=== PATIENT | female | born 1940 | race Caucasian/White ===

== ENCOUNTER 2020-08-18 00:25 | Emergency (ER) | payer MEDICARE, SELFPAY ==
[2020-08-18 01:00] VITALS: BP 173/71; PULSE 68; RESP 20; TEMP 36.4; O2SAT 98
--- NOTE | 2020-08-18 01:18 | ED.GENADULT ---
HPI - General Adult General Chief complaint: Dizziness Stated complaint: blood pressure Time Seen by Provider: 08/18/20 01:05 Source: patient and family Mode of arrival: ambulatory Limitations: no limitations History of Present Illness HPI narrative: Patient is brought in because the daughter took her blood pressure at home, for a routine reading and they thought it was high. Because of this she is brought in and they are worried about her. She woke up from sleep a little bit ago and felt a bit shakey. They were concerned that something was wrong so the took her blood pressure and when they got an number they thought was high they wanted her to be evaluated. Severity: mild Related Data Home Medications Medication Instructions Recorded Confirmed amlodipine 5 mg PO DAILY 08/18/20 08/18/20 irbesartan 75 mg PO DAILY 08/18/20 08/18/20 Allergies Allergy/AdvReac Type Severity Reaction Status Date / Time No Known Allergies Allergy Verified 08/18/20 00:46 Review of Systems Constitutional: Constitutional: Reports no additional constitutional complaints Eyes: Eyes: Reports no additional eye complaints ENT: Reports system reviewed and no additional complaints, except as documented Cardiovascular: Cardiovascular: Reports no additional cardiovascular complaints Respiratory: Respiratory: Reports no additional respiratory complaints Gastrointestinal: Gastrointestinal: Reports no additional gastrointestinal complaints Genitourinary: Genitourinary: Reports no additional female genitourinary complaints Musculoskeletal: Musculoskeletal: Reports no additional musculoskeletal complaints Integumentary/Breasts: Skin/Breast: Reports system reviewed and no additional complaints, except as docu Neurologic: Reports system reviewed and no additional complaints, except as documented Psychiatric: Psychiatric: Reports no additional psychiatric complaints Endocrine: Endocrine: Reports no additional endocrine complaints Hematologic/Lymphatic: Hematologic/Lymphatic: Reports no additional hematologic/lymphatic complaints Allergic/Immunologic: Allergic/Immunologic: Reports no additional allergic/immunologic complaints [facility] Past Medical History Medical History (Updated 08/18/20 @ 02:14 by James Posada MD) Hypertension Exam Const: General: no acute distress Orientation/consciousness: patient oriented x3 Other: She said she was a little shakey before she came in. She got worried because she thought her blood pressure was high. HENMT: Head: normal to inspection Ears: TM's normal bilaterally Face and sinus: normal facial exam Mouth: Yes Normal oral and palatal mucosa present Teeth and gingiva: dentition normal Throat: posterior oropharynx normal Eyes: Conjunctivae: conjunctivae normal Neck: Neck: normal visual inspection Chest: Chest palpation & inspection: normal inspection of the chest Resp: Effort & Inspection: normal respiratory effort Cardio: Rate: regular rate Rhythm: regular rhythm GI: GI Palp: Yes Soft to palpation : External Female Exam: normal external appearance Back/Spine/Pelvis: Back: no CVA tenderness Skin: General skin exam: normal color Neuro: General: patient oriented x3 and moves all extremities Extrem: General: normal to inspection Psych: Appearance: grossly normal Mental Status: mental status grossly normal Course Course Emergency Course: we asked for labs from [place] to be faxed. We found she had a UTI by her urine. She was sent home with a script for keflex q8hr 500mg. we asked her to follow up with her family doctor soon. Vital Signs Vital signs: Vital Signs Temperature 36.4 C L 08/18/20 01:00 Pulse Rate 68 08/18/20 01:00 Respiratory Rate 20 08/18/20 01:00 Blood Pressure 173/71 H 08/18/20 01:00 Pulse Oximetry 98 08/18/20 01:00 Temperature 36.6 C 08/18/20 02:19 Pulse Rate 82 08/18/20 02:19 Respiratory Rate 20 08/18/20 02:19 Blood Press
[2020-08-18 01:31] LABS: Add Urine Microscopic? YES; Appearance Urine Clear (Clear); Bilirubin Urine Negative (Negative); Blood Urine Negative (Negative); Color Urine Yellow (Yellow); Glucose Urine UA Negative (Negative); Ketones Urine Negative (Negative); Leukocyte Esterase Ur 2+ (Negative); Nitrate Urine Negative (Negative); Protein Urine Negative (Negative); Urobilinogen Urine 0.2 mg/dL (0.2-1.0); pH Urine 5.5 (5.0-8.0)
[2020-08-18 01:40] LABS: RBC Urine None seen /hpf (0-2); WBC Urine None seen /hpf (0-3)
[2020-08-18 01:41] LABS: Squamous Epithelial Cell Urine None seen /hpf (Few)
[2020-08-18] MEDS: CEPHALEXIN 500 MG CAPSULE PO (02:18)
[2020-08-18 02:19] VITALS: BP 149/84; PULSE 82; RESP 20; TEMP 36.6; O2SAT 95
== END 2020-08-18 02:35 | disposition home or self-care (01) ==
PROVIDERS: Emergency Medicine; Emergency Provider Emergency Medicine; PCP Internal Medicine
DX: N30.00 Acute cystitis without hematuria (principal); I10 Essential (primary) hypertension
CPT/HCPCS: 81001; 87086; 87088; 99283; A9270

== ENCOUNTER 2022-09-04 06:40 | Emergency (ER) | payer MEDICARE, SELFPAY ==
[2022-09-04] VITALS (17 sets, daily range): BP systolic 153–224; BP diastolic 61–94; PULSE 53–68; RESP 11–18; TEMP 36.6–37.1; O2SAT 95–99
--- NOTE | 2022-09-04 06:44 | ECG_ITS ---
Measurements Intervals [place] Rate: 66 P: 51 RI: 179 QRS: -56 QRSD: 99 T: 77 QT: 406 QTc: 426 Interpretive Statements SINUS RHYTHM LEFT ANTERIOR FASCICULAR BLOCK BORDERLINE ST-T WAVE ABNORMALITY- HIGH LATERAL LEADS ABNORMAL ECG NO PREVIOUS ECG AVAILABLE FOR COMPARISON Electronically Signed On 09-04-2022 7:51:49 GUSSET RIPPER by Avery Garcia D.O.
--- NOTE | 2022-09-04 06:48 | ED.GENADULT ---
HPI - General Adult General Chief complaint: Weakness <Oh Orozco DO - Last Filed: 09/09/22 06:56> Stated complaint: Weakness <Oh Orozco DO - Last Filed: 09/09/22 06:56> Time Seen by Provider: 09/04/22 06:45 <Oh Orozco DO - Last Filed: 09/09/22 06:56> History of Present Illness HPI narrative: Fatuma is a 81F with a PMH of HTN (denies currently being on medication) that woke up with numbness on the left side of her face and weakness. She woke up with this but was normal last night. She denies any CP, dyspnea, lightheadedness, fevers, chills, N/V, and diarrhea. No sick contacts reported. <Oh Orozco DO - Last Filed: 09/09/22 06:56> Related Data Allergies/adverse reactions: Allergies Allergy/AdvReac Type Severity Reaction Status Date / Time No Known Allergies Allergy Verified 09/07/22 10:08 <Oh Orozco DO - Last Filed: 09/09/22 06:56> Review of Systems Review of Systems: All systems reviewed & are unremarkable except as noted in HPI and below <Oh Orozco DO - Last Filed: 09/09/22 06:56> [facility] Past Medical History Medical History: Medical History Hypertension <Oh Orozco DO - Last Filed: 09/09/22 06:56> Social History Social History: Social History Smoking status: Never smoker Alcohol intake: never Substance use: never Lack of Transportation: No Lack of Food: Never True Current Housing: I Have Housing Concerned About Future Housing: No Difficulty Paying Gas/Electric Bills: No Difficulty Paying for Meds: No Currently Unemployed: No Education: High School Diploma/GED Difficulty w/ Childcare or Family Care: No Spiritual care concerns: No <Oh Orozco DO - Last Filed: 09/09/22 06:56> Exam Const: General: no acute distress and alert <Oh Tripp Kourtneydonngene DO - Last Filed: 09/09/22 06:56> Nutritional Appearance: well nourished <Oh Josee Oconnelldonngene DO - Last Filed: 09/09/22 06:56> HENMT: Head: normal to inspection <Oh Josee Oconnelldonngene DO - Last Filed: 09/09/22 06:56> Ears: external ears normal <Oh FernandoJamaal Kourtneydonngene DO - Last Filed: 09/09/22 06:56> Eyes: Conjunctivae: conjunctivae normal <Oh Oconnelldonngene DO - Last Filed: 09/09/22 06:56> Pupils: Equal, round and reactive pupils present <Oh Josee Oconnelldev DO - Last Filed: 09/09/22 06:56> Neck: Neck: normal visual inspection <Oh Josee Oconnelldev - Last Filed: 09/09/22 06:56> Chest: Chest palpation & inspection: normal inspection of the chest <Oh Orozco DO - Last Filed: 09/09/22 06:56> Resp: Effort & Inspection: normal respiratory effort <Oh Josee Oconnelldev DO - Last Filed: 09/09/22 06:56> Auscultation: clear to auscultation bilaterally <Ohkarina Tripp Kourtneydonngene, - Last Filed: 09/09/22 06:56> Cardio: Rate: regular rate <Oh Orozco DO - Last Filed: 09/09/22 06:56> Rhythm: regular rhythm <Oh Tripp Kourtneydev DO - Last Filed: 09/09/22 06:56> GI: Inspection: non-distended <Oh FernandoJamaal Kourtneydev DO - Last Filed: 09/09/22 06:56> Skin: General skin exam: normal color <Oh Orozco DO - Last Filed: 09/09/22 06:56> Rashes: no rashes <Oh Orozco DO - Last Filed: 09/09/22 06:56> Neuro: General: patient oriented x3, moves all extremities and CN's II-XI intact bilaterally <Oh P. Buschling, DO - Last Filed: 09/09/22 06:56> Cranial nerves: Yes Nystagmus not present <Oh Orozco DO - Last Filed: 09/09/22 06:56> Speech: normal speech <Oh Orozco, DO - Last Filed: 09/09/22 06:56> Other: 5/5 symmetrical strength in the upper and lower extremities. Sensation intact. Normal speech. No upper extremity drift. <Oh Orozco, - Last Filed: 09/09/22 06:56> Course Course Emergency Course: Ordered labs and EKG. EKG showed NSR with a rate of 66, but no ST elevation/de
[2022-09-04 07:06] LABS: Basophils Absolute Auto 0.07 K/mm3 (0.00-0.10); Basophils Percent Auto 1.1 % (0.0-1.0); Eosinophils Absolute Auto 0.32 K/mm3 (0.02-0.50); Eosinophils Percent Auto 5.1 % (1.0-6.0); Hematocrit 41.7 % (35.0-42.0); Hemoglobin 13.8 g/dL (11.7-13.8); Immature Granulocyte Absolute 0.02 K/mm3 (0.00-0.00); Immature Granulocyte Percent A 0.3 % (0.0-0.0); Lymphocytes Absolute Auto 1.94 K/mm3 (1.10-4.50); Lymphocytes Percent Auto 30.7 % (18.0-42.0); Mean Corpuscular HGB Conc 33.1 g/dL (32.0-36.0); Mean Corpuscular Hemoglobin 29.6 pg (27.0-31.0); Mean Corpuscular Volume 89.3 fL (78.0-102.0); Mean Platelet Volume 10.6 fl (9.2-11.8); Monocytes Absolute Auto 0.39 K/mm3 (0.10-0.90); Monocytes Percent Auto 6.2 % (2.0-11.0); Neutrophils Absolute Auto 3.6 K/mm3 (1.7-7.2); Neutrophils Percent Auto 56.6 % (50.0-70.0); Platelet Count Result 205 K/mm3 (150-420); Red Blood Count 4.67 M/mm3 (4.20-5.40); Red Cell Distribution Width 12.7 % (11.6-14.4); White Blood Count 6.3 K/mm3 (4.8-10.8)
[2022-09-04] MEDS: LABETALOL HCL INJ 100 MG/20 ML VIAL 20 MG IV PUSH (07:14)
[2022-09-04 07:28] LABS: Albumin Level 3.2 g/dL (3.4-5.0); Alkaline Phosphatase 86 U/L (46-116); Anion Gap 6 mmol/L (8-16); Aspartate Amino Transferase 15 U/L (15-37); Bilirubin,Total 1.1 mg/dL (0.00-1.00); Blood Urea Nitrogen 11 mg/dL (7-18); Calcium 9.1 mg/dL (8.5-10.1); Carbon Dioxide 27 mmol/L (21-32); Chloride 106 mmol/L (98-108); Estimated CRCL calculation 49 ml/min; Estimated Glomerular Filt Rate > 60; Glucose 96 mg/dL (70-99); Magnesium 1.8 mg/dL (1.8-2.4); NT Pro B Type Natriuretic Pept 304 pg/mL (0-450); Osmolality Calculated 287 mOsm/kg (285-295); Potassium 3.8 mmol/L (3.5-5.1); Sodium 139 mmol/L (136-145); Total Protein 6.7 g/dL (6.4-8.2); Troponin I 9.1 ng/L (0.00-60.4)
[2022-09-04 07:38] LABS: Alanine Aminotransferase 12 U/L (14-59); Ethanol < 3 mg/dL (0-6)
[2022-09-04 07:42] LABS: Influenza A QL RT-PCR Negative (Negative); Influenza B QL RT-PCR Negative (Negative); SARS-CoV-2 RNA PCR Negative (Negative)
[2022-09-04 07:46] LABS: RSV RNA, RT-PCR Negative (Negative)
--- NOTE | 2022-09-04 08:00 | PC.NURSE ---
patient's blood pressure has come down to 158/61, facial numbness has resolved. erp notified.
--- NOTE | 2022-09-04 08:15 | PC.NURSE ---
patient still unable to give urine sample, erp is aware and states we do not need.
== END 2022-09-04 08:46 | disposition home or self-care (01) ==
PROVIDERS: Family Medicine; Emergency Provider Internal Medicine Critical Care Medicine; PCP Internal Medicine
DX: I16.0 Hypertensive urgency (principal); I10 Essential (primary) hypertension; Z79.02 Long term (current) use of antithrombotics/antiplatelets; Z79.82 Long term (current) use of aspirin; Z20.822 Contact with and (suspected) exposure to COVID-19; Z79.899 Other long term (current) drug therapy
CPT/HCPCS: 36415; 80053; 80307; 83735; 83880; 84484; 85025; 87637; 93005; 96374; 99284

== ENCOUNTER 2022-09-04 15:14 | Observation (INO) | payer MEDICARE, SELFPAY ==
[2022-09-04] VITALS (14 sets, daily range): BP systolic 156–223; BP diastolic 57–76; PULSE 56–78; RESP 16–18; TEMP 36.2–36.5; O2SAT 99–100; BMI 31.2
--- NOTE | ~2022-09-04 | CT_ITS ---
EXAMINATION: CT brain wo con DATE: 09/04/2022 16:04 INDICATION: weakness . TECHNIQUE: Computed tomography (CT) of the head was performed without intravenous contrast. The mA wa s adjusted according to patient size. Iterative reconstruction technique was employed. The dose-lengt h product was 605.33 mGy-cm. COMPARISON: None. FINDINGS: No acute intracranial hemorrhage or extra-axial fluid collection. No hydrocephalus, mass, or herniation. No acute ischemic infarct. Unremarkable dural venous sinus attenuation. No acute osseous abnormality. The aerated spaces are clear. Mild atrophy and severe chronic white matter change. Atherosclerotic intracranial calcification. Bila teral lens replacements. IMPRESSION: No acute intracranial process. Reviewed, dictated and finalized at location K. [employer] COMPUTER CONSULTANT
--- NOTE | 2022-09-04 15:18 | ED.GENADULT ---
HPI - General Adult General Chief complaint: Weakness Stated complaint: numbness in face, high bp, weak Time Seen by Provider: 09/04/22 15:17 Source: patient Mode of arrival: wheelchair History of Present Illness HPI narrative: 81-year-old female with a history of hypertension, noncompliance with blood pressure medication presented to the ER this morning with generalized weakness and numbness of the left side of the face. The patient was noted to be hypertensive with a blood pressure of 224/94. Subsequent blood pressure reading was noted to be 176/66. patient did receive labetalol 10 mg IV x1. The patient subsequent blood pressure within normal limits. The patient had blood work which included CBC and chemistry along with testing for influenza, RSV and COVID which was noted to be normal. The patient was advised to take Irbesartan 75 mg daily. The patient returns to the ER now with -- generalized weakness -- left facial numbness. no other focal neuro deficits. -- blood pressure of 223/69 Her symptoms 1st appeared this morning on waking up and subsequently have continued till now. Onset (ago): hour(s) ( 9 hours) Relieving factors: none Exacerbating factors: none Associated symptoms: denies other symptoms and weakness Related Data Allergies Allergy/AdvReac Type Severity Reaction Status Date / Time No Known Allergies Allergy Verified 09/04/22 15:35 Review of Systems Review of Systems: All systems reviewed & are unremarkable except as noted in HPI and below Constitutional: Constitutional: Reports as per HPI and Reports no additional constitutional complaints Eyes: Eyes: Reports as per HPI and Reports no additional eye complaints ENT: Reports system reviewed and no additional complaints, except as documented and Reports as per HPI Cardiovascular: Cardiovascular: Reports as per HPI and Reports no additional cardiovascular complaints Respiratory: Respiratory: Reports as per HPI and Reports no additional respiratory complaints Gastrointestinal: Gastrointestinal: Reports as per HPI and Reports no additional gastrointestinal complaints Genitourinary: Genitourinary: Reports no additional female genitourinary complaints and Reports as per HPI Musculoskeletal: Musculoskeletal: Reports no additional musculoskeletal complaints and Reports as per HPI Integumentary/Breasts: Skin/Breast: Reports system reviewed and no additional complaints, except as docu and Reports as per HPI Neurologic: Reports system reviewed and no additional complaints, except as documented and Reports as per HPI Psychiatric: Psychiatric: Reports no additional psychiatric complaints and Reports as per HPI Endocrine: Endocrine: Reports no additional endocrine complaints and Reports as per HPI Hematologic/Lymphatic: Hematologic/Lymphatic: Reports no additional hematologic/lymphatic complaints and Reports as per HPI Allergic/Immunologic: Allergic/Immunologic: Reports no additional allergic/immunologic complaints and Reports as per HPI [facility] Past Medical History Medical History Hypertension Exam Const: General: no acute distress Nutritional Appearance: well nourished Orientation/consciousness: patient oriented x3 Limitations: no limitations HENMT: Head: normal to inspection Ears: external ears normal Face/Nose/Sinus: Normal external nose present Face and sinus: normal facial exam Mouth: Yes Normal oral and palatal mucosa present Throat: posterior oropharynx normal Eyes: Conjunctivae: conjunctivae normal Pupils: Equal, round and reactive pupils present EOM: EOMs intact bilaterally Direct Ophthalmoscopy: no photophobia Neck: Neck: normal visual inspection, no lymphadenopathy and no meningeal signs Chest: Chest palpation & inspection: normal inspection of the chest Resp: Effort & Inspection: normal respiratory effort Auscultation: clear to auscultation bilaterally Cardio: Rate: reg
--- NOTE | 2022-09-04 15:45 | ECG_ITS ---
Measurements Intervals [place] Rate: 65 P: 34 CT: 184 QRS: -49 QRSD: 100 T: 65 QT: 422 QTc: 440 Interpretive Statements SINUS RHYTHM LEFT ANTERIOR FASCICULAR BLOCK LEFT VENTRICULAR HYPERTROPHY WITH ST-T CHANGE BASELINE ARTIFACT- I, II, III, AVR, AVL, AVF, V1 ABNORMAL ECG COMPARED TO ECG 09/04/2022 06:51:36 NO SIGNIFICANT CHANGES Electronically Signed On 09-04-2022 18:42:20 CUSTOMS INVESTIGATOR by Avery Garcia D.O.
[2022-09-04 16:14] LABS: Add Urine Microscopic? YES; Appearance Urine Clear (Clear); Bilirubin Urine Negative (Negative); Blood Urine Negative (Negative); Color Urine Yellow (Yellow); Glucose Urine UA Negative (Negative); Ketones Urine Negative (Negative); Leukocyte Esterase Ur Trace LEU/UL (Negative); Nitrate Urine Negative (Negative); Protein Urine Negative (Negative); Specific Grav Ur >= 1.030 (1.010-1.020); Urobilinogen Urine 0.2 mg/dL (0.2-1.0); pH Urine 5.5 (5.0-8.0)
[2022-09-04 16:15] LABS: Troponin I 6.5 ng/L (0.00-60.4)
[2022-09-04 16:19] LABS: RBC Urine 0-2 /hpf (0-2); Squamous Epithelial Cell Urine Few /hpf (Few); WBC Urine 0-3 /hpf (0-3)
[2022-09-04 16:20] LABS: Bacteria Urine Trace /hpf
--- NOTE | 2022-09-04 17:43 | ADMGEN ---
This patient, Fatuma Nolasco, was admitted to 2nd Floor Room 208-1. Patient/family oriented to hospital policies and general routines including ID bracelet, bed and alarms, visiting hours, pain management, procedures, bathroom and other care routines, personal items, smoking policy, room service/diet, and visiting hours. Information on how to activate the Rapid Response Team has been discussed. Patient/Family are encouraged to report perceived risks to care and to ask questions if they do not understand what they are told or what they should do.
[2022-09-04] MEDS: hydrALAZINE 5 MG TABLET PO ×2 (18:21→20:36)
[2022-09-04] MEDS: hydrALAZINE HCL 20 MG/ML VIAL 10 MG IV PUSH (18:23)
[2022-09-04] MEDS: traZODone HCL 50 MG TABLET PO (20:36)
[2022-09-05] VITALS: BP 153/62; PULSE 76; PULSE 79; RESP 16; TEMP 36.9; O2SAT 98
[2022-09-05 04:00] VITALS: BP 136/53; PULSE 69; PULSE 71; RESP 16; TEMP 36; O2SAT 95
[2022-09-05 05:14] LABS: Hematocrit 38.6 % (35.0-42.0); Hemoglobin 12.7 g/dL (11.7-13.8); Mean Corpuscular HGB Conc 32.9 g/dL (32.0-36.0); Mean Corpuscular Hemoglobin 29.7 pg (27.0-31.0); Mean Corpuscular Volume 90.2 fL (78.0-102.0); Mean Platelet Volume 10.7 fl (9.2-11.8); Platelet Count Result 187 K/mm3 (150-420); Red Blood Count 4.28 M/mm3 (4.20-5.40); White Blood Count 5.6 K/mm3 (4.8-10.8)
[2022-09-05 05:34] LABS: Alanine Aminotransferase 12 U/L (14-59); Albumin Level 2.9 g/dL (3.4-5.0); Alkaline Phosphatase 76 U/L (46-116); Anion Gap 5 mmol/L (8-16); Aspartate Amino Transferase 15 U/L (15-37); Bilirubin,Total 1.1 mg/dL (0.00-1.00); Blood Urea Nitrogen 9 mg/dL (7-18); Calcium 8.7 mg/dL (8.5-10.1); Carbon Dioxide 29 mmol/L (21-32); Chloride 108 mmol/L (98-108); Estimated CRCL calculation 49 ml/min; Estimated Glomerular Filt Rate > 60; Glucose 90 mg/dL (70-99); Osmolality Calculated 292 mOsm/kg (285-295); Potassium 4.1 mmol/L (3.5-5.1); Sodium 142 mmol/L (136-145); Total Protein 5.6 g/dL (6.4-8.2)
[2022-09-05 08:00] VITALS: BP 139/58; PULSE 72; PULSE 81; RESP 18; TEMP 36; O2SAT 95
[2022-09-05] MEDS: hydrALAZINE 5 MG TABLET PO (08:46)
[2022-09-05] MEDS: CLOPIDOGREL BISULFATE 75 MG TABLET PO (08:47)
[2022-09-05] MEDS: ASPIRIN 325 MG ENTERIC TABLET PO (08:47)
[2022-09-05] MEDS: ENOXAPARIN 40 MG/0.4 ML SYRINGE SUB-Q (08:49)
--- NOTE | 2022-09-05 10:47 | PM.SD2 ---
Same Day Admit/Disch: HPI History of Present Illness Chief complaint: Systolic hypertension Narrative: Fatuma Nolasco is a 81 year old female that presented to the emergency department with elevated blood pressure. patient has a past medical history of hypertension. Patient is a poor historian most information obtained from medical records and her daughter. According to her daughter patient has not taking her home hypertension medication for quite some time now her blood pressure was being controlled by her diet. According to her daughter she has not been eating properly lately which could be the cause of her elevated blood pressure reading. When speaking with the patient I asked her with for her to our emergency department she said her daughter she was unaware of what her daughter decided to bring her to the emergency department. Patient appears to have some type of memory deficiency she is aware of her name and her location but unaware of the year and who the president is. patient is unsure why she is here in hospital. According to her daughter her mental status has been deteriorating for quite some time now. When patient arrived in the emergency department she had generalized weakness with left facial numbness with a blood pressure of 223/69. Patient's CBC and CMP were normal troponin 9.16.[address] of the head no new finding EKG sinus rhythm with a heart rate of 65. I instructed patient's daughter to take her blood pressure daily record results and give findings to primary care physician for possible medication adjustment. Patient is currently taking hydralazine 5 mg qid. this may not be the ideal blood pressure medication per patient due to her mental status. attempts to call patient's primary care physician he is not in the office today. will keep patient on hydralazine 5 mg t.i.d. and that her primary care physician manage medication change. Patient does not appear to be in distress Discharge instructions reviewed with patient, as well as provided in writing per nursing staff. The instructions also include specific and strict return/GO TO THE ER as well as f/u information. All questions have been answered, and the patient and/or family deny any further questions with discharge and discharge plan. I have ordered MRI as outpatient with results going to patient's primary care physician. [facility] Past Medical History Medical History Hypertension Social History Social History Smoking status: Never smoker Alcohol intake: never Substance use: never Lack of Transportation: No Lack of Food: Never True Current Housing: I Have Housing Concerned About Future Housing: No Difficulty Paying Gas/Electric Bills: No Difficulty Paying for Meds: No Currently Unemployed: No Education: High School Diploma/GED Difficulty w/ Childcare or Family Care: No Spiritual care concerns: No Same Day Admit/Disch: Med Pre-admit Medications Home Medications Medication Instructions Recorded Confirmed Type aspirin 325 mg tablet,delayed 325 mg PO QAM 30 days #30 tabs 09/05/22 Rx release clopidogrel 75 mg tablet 75 mg PO QAM 30 days #30 tabs 09/05/22 Rx hydralazine 10 mg tablet 10 mg PO TID #60 tabs 09/05/22 Rx pravastatin 10 mg tablet 5 mg PO DAILY 30 days #15 tabs 09/05/22 Rx Exam Narrative: GENERAL: This is a well-nourished, well-developed patient, in no apparent distress. HEAD: normocephalic, atraumatic. EYES: PERRL. Sclera clear/white. Vision is grossly intact. EARS: External ears normal, auditory canals clear and without drainage, TMs normal without perforation. Hearing grossly intact. NOSE: External nose normal with no obvious nasal discharge, nares without redness, no rhinorrhea. THROAT: Mucous membranes moist, posterior pharynx clear. NECK: Neck supple, non-tender without lymphadenopathy, masses or thyr
[2022-09-05 11:54] VITALS: BP 116/54; PULSE 76; RESP 16; TEMP 36.3; O2SAT 97
--- NOTE | 2022-09-05 12:30 | PC.NURSE ---
1220 family packed up her lunch to take home. iv out and drg applied. site looks clean. no redness. voices no c/o. dc instructions went over and both family and patient vocalize an understanding. dc to daughter's car.
--- NOTE | 2022-09-07 11:40 | PC.NURSE ---
Invalid phone number for call back.
== END 2022-09-05 12:25 | disposition home health service (06) ==
LOC: CHSED 16:49 → CHS2ND 16:58
PROVIDERS: Nurse Practitioner; Admitting Provider Internal Medicine; Emergency Provider Internal Medicine Critical Care Medicine; PCP Internal Medicine; Visit Provider Internal Medicine
DX: G45.9 Transient cerebral ischemic attack, unspecified (principal); I10 Essential (primary) hypertension; F41.9 Anxiety disorder, unspecified; Z91.14 Patient's other noncompliance with medication regimen
CPT/HCPCS: 36415; 70450; 80053; 81001; 84484; 85027; 87086; 87088; 93005; 96372; 97161; 97165; 99285; A9270; G0378; J0360; J1650

== ENCOUNTER 2022-09-07 09:51 | Emergency (ER) | payer MEDICARE, SELFPAY ==
--- NOTE | ~2022-09-07 | CT_ITS ---
EXAMINATION: CTA chest PE protocol DATE: 09/07/2022 12:00 INDICATION: Shortness of breath. TECHNIQUE: Computed tomography angiography (CTA) of the chest was performed with 100 mL Omnipaque-350 intravenous contrast timed to evaluate the pulmonary arteries. Coronal maximum intensity projection 3D-reconstructions were created by the technologist. Automated exposure control and iterative reconst ruction technique were employed. The dose-length product was 268.82 mGy-cm. COMPARISON: Chest single view 09/07/2022 FINDINGS: The lungs demonstrate mild atelectasis. A calcified left lung nodule and calcified left hil ar and mediastinal lymph nodes are consistent with old granulomatous disease. There are small bilater al posterior diaphragmatic hernias containing fat. No pleural effusion. There is a 2.2 cm nodule in l eft thyroid lobe that extends into the mediastinum. The heart size is normal. No pericardial effusion . There is no pulmonary embolus. There is a small sliding hiatal hernia. There are changes of cholecy stectomy. There is mild thoracic spondylosis. IMPRESSION: 1. No pulmonary embolus. 2. Small sliding hiatal hernia. 3. 2.2 cm left thyroid nodule. Consider thyroid ultrasound for risk stratification if indicated given the patient's age. Reviewed, dictated and finalized at location A. S DESIGNER IMPRESSION: 1. No pulmonary embolus. 2. Small sliding hiatal hernia. 3. 2.2 cm left thyroid nodule. Consider thyroid ultrasound for risk stratificat ion if indicated given the patient's age.
--- NOTE | ~2022-09-07 | CT_ITS ---
CT head without contrast Indication: Weakness, confusion COMPARISON: 09/04/2022 Technique: Serial scans were obtained through the brain without the administration of contrast. Dose reduction technique was used on this scan by utilizing automated exposure control and iterative recon struction technique. The dose-length product (DLP) was 605.33 mGy-cm. Findings: There is no evidence of intracranial hemorrhage, mass lesion, or acute infarct. The ventri cles and subarachnoid spaces are dilated, consistent with mild atrophy. Low attenuation regions are seen within the periventricular white matter bilaterally, likely representing changes from chronic mi crovascular ischemic disease. There is no evidence of edema, mass effect or midline shift. The visu alized paranasal sinuses and mastoid air cells are clear. Impression: No intracranial hemorrhage, mass, or acute infarct. Atrophy and chronic white matter changes, as above. Reviewed, dictated and finalized at [facility]. GE ATTACHER Impression: No intracranial hemorrhage, mass, or acute infarct. Atrophy and chronic white matter changes, as above.
--- NOTE | ~2022-09-07 | XR_ITS ---
XR chest 1V portable DATE: 09/07/2022 11:07 INDICATION: Shortness of breath, weakness TECHNIQUE: Portable upright AP chest on 09/07/2022 at 1115 hours COMPARISON: 04/29/2019 PA and lateral chest FINDINGS: Heart size is within normal range. There is aortic arch calcification and mild aortic unfol ding. No hilar or mediastinal enlargement is detected. No pulmonary infiltrate or consolidation, pleural effusion or pulmonary vascular congestion or pneumo thorax. IMPRESSION: No active cardiopulmonary disease Aortic atherosclerosis Reviewed, dictated and finalized at location [facility]. [facility]
[2022-09-07 09:55] VITALS: BP 186/83; PULSE 63; RESP 14; TEMP 36.6; O2SAT 100
--- NOTE | 2022-09-07 10:18 | ECG_ITS ---
Measurements Intervals [place] Rate: 57 P: 50 RI: 194 QRS: -43 QRSD: 95 T: 12 QT: 423 QTc: 412 Interpretive Statements SINUS BRADYCARDIA LEFT AXIS DEVIATION VOLTAGE CRITERIA FOR LVH POOR R WAVE PROGRESSION, CONSIDER ANTERIOR INFARCT BORDERLINE T WAVE ABNORMALITY- ANTERIOR LEADS BASELINE ARTIFACT- I, II, III ABNORMAL ECG COMPARED TO ECG 09/04/2022 15:46:40 SINUS BRADYCARDIA NOW PRESENT Electronically Signed On 09-07-2022 13:53:20 CLINICAL DOCUMENTATION DEVELOPER by Avery Garcia D.O.
[2022-09-07 10:55] VITALS: BP 165/85; PULSE 65; RESP 16; O2SAT 98
[2022-09-07 11:04] LABS: Basophils Absolute Auto 0.07 K/mm3 (0.00-0.10); Basophils Percent Auto 1.3 % (0.0-1.0); Eosinophils Percent Auto 3.7 % (1.0-6.0); Hematocrit 43.1 % (35.0-42.0); Immature Granulocyte Absolute 0.02 K/mm3 (0.00-0.00); Immature Granulocyte Percent A 0.4 % (0.0-0.0); Immature Platelet Fraction Pct 3.2 % (1.0-7.0); Lymphocytes Absolute Auto 1.09 K/mm3 (1.10-4.50); Lymphocytes Percent Auto 20.1 % (18.0-42.0); Mean Corpuscular HGB Conc 32.5 g/dL (32.0-36.0); Mean Corpuscular Volume 92.3 fL (78.0-102.0); Mean Platelet Volume 10.9 fl (9.2-11.8); Monocytes Absolute Auto 0.29 K/mm3 (0.10-0.90); Monocytes Percent Auto 5.3 % (2.0-11.0); Neutrophils Absolute Auto 3.8 K/mm3 (1.7-7.2); Neutrophils Percent Auto 69.2 % (50.0-70.0); Platelet Count Result 184 K/mm3 (150-420); Red Blood Count 4.67 M/mm3 (4.20-5.40); White Blood Count 5.4 K/mm3 (4.8-10.8)
[2022-09-07 11:19] LABS: D Dimer 0.64 mg/L (0.19-0.50)
[2022-09-07 11:22] LABS: Lactic Acid Reflex 0.5 mmol/L (0.4-2.0)
[2022-09-07 11:23] LABS: Alanine Aminotransferase 9 U/L (14-59); Albumin Level 3.2 g/dL (3.4-5.0); Alkaline Phosphatase 90 U/L (46-116); Anion Gap 5 mmol/L (8-16); Aspartate Amino Transferase 18 U/L (15-37); Bilirubin,Total 1.5 mg/dL (0.00-1.00); Blood Urea Nitrogen 13 mg/dL (7-18); Calcium 8.9 mg/dL (8.5-10.1); Carbon Dioxide 26 mmol/L (21-32); Chloride 105 mmol/L (98-108); Estimated CRCL calculation 46 ml/min; Estimated Glomerular Filt Rate > 60; Glucose 94 mg/dL (70-99); Magnesium 1.9 mg/dL (1.8-2.4); NT Pro B Type Natriuretic Pept 302 pg/mL (0-450); Osmolality Calculated 282 mOsm/kg (285-295); Potassium 4.1 mmol/L (3.5-5.1); Sodium 136 mmol/L (136-145); Total Protein 6.9 g/dL (6.4-8.2); Troponin I 11.7 ng/L (0.00-60.4)
[2022-09-07 11:28] LABS: Partial Thromboplastin Time 23.4 SEC (23.90-30.70); Prothrombin Time 10.7 Seconds (9.50-12.10)
[2022-09-07 11:34] LABS: SARS-CoV-2 RNA PCR Negative (Negative)
[2022-09-07 11:52] LABS: Add Urine Microscopic? YES; Appearance Urine Clear (Clear); Bilirubin Urine Negative (Negative); Blood Urine Negative (Negative); Color Urine Light Yellow (Yellow); Glucose Urine UA Negative (Negative); Ketones Urine Negative (Negative); Leukocyte Esterase Ur Trace LEU/UL (Negative); Nitrate Urine Negative (Negative); Protein Urine Negative (Negative); Urobilinogen Urine 0.2 mg/dL (0.2-1.0)
[2022-09-07 11:58] LABS: Bacteria Urine Trace /hpf; RBC Urine None seen /hpf (0-2); Squamous Epithelial Cell Urine Few /hpf (Few); WBC Urine None seen /hpf (0-3)
--- NOTE | 2022-09-07 12:18 | ED.WEAKNESS ---
HPI - Weakness General Chief complaint: Weakness Stated complaint: AMBULANCE Time Seen by Provider: 09/07/22 09:53 Source: patient and EMS Mode of arrival: EMS Limitations: no limitations History of Present Illness HPI Narrative: sin 81-year-old female that presents via EMS after family was concerned with generalized weakness with facial numbness, the patient was recently discharged 2 days ago with similar symptoms had elevated blood pressure at that time systolic over 200, currently her systolic blood pressure is 165, there is no chest pain no shortness of breath has no neurological deficits no abdominal pain no flank pain no chest pain no shortness of breath no dysuria. Patient has no fever chills no nausea vomiting. Complaint: generalized weakness Onset (ago): week(s) Duration: intermittent Location: generalized Severity: mild Quality: numbness Exacerbating factors: none Context: new medication Related Data Allergies Allergy/AdvReac Type Severity Reaction Status Date / Time No Known Allergies Allergy Verified 09/07/22 10:08 Review of Systems Review of Systems: All systems reviewed & are unremarkable except as noted in HPI and below PMFSH Past Medical History Medical History Hypertension Social History Social History Smoking status: Never smoker Alcohol intake: never Substance use: never Lack of Transportation: No Lack of Food: Never True Current Housing: I Have Housing Concerned About Future Housing: No Difficulty Paying Gas/Electric Bills: No Difficulty Paying for Meds: No Currently Unemployed: No Education: High School Diploma/GED Difficulty w/ Childcare or Family Care: No Spiritual care concerns: No Exam Const: General: healthy appearing Nutritional Appearance: well nourished Orientation/consciousness: patient oriented x3 HENMT: Head: normal to inspection Face and sinus: normal facial exam Mouth: Yes Normal oral and palatal mucosa present Eyes: Pupils: Equal, round and reactive pupils present Neck: Neck: normal visual inspection Chest: Chest palpation & inspection: normal inspection of the chest Resp: Effort & Inspection: normal respiratory effort Auscultation: clear to auscultation bilaterally Cardio: Rate: bradycardic Rhythm: regular rhythm GI: GI Palp: Yes Soft to palpation Auscultation: normal bowel sounds : General: Yes bladder normal to palpation Urinary Catheter: Urinary Catheter: patent and draining Skin: General skin exam: normal color Rashes: no rashes Wounds: no wounds Neuro: General: patient oriented x3 Cranial nerves: Yes Nystagmus not present Speech: normal speech Gait exam (Neuro): Normal gait present Extrem: General: normal to inspection Psych: Mental Status: mental status grossly normal Affect: normal affect Course Course Emergency Course: Labs EKG CT scan x-rays reviewed with patient and family, the patient did state that she has no complaints and her daughter her daughter's advised her to come in and called EMS for arrival to the ER. Otherwise her D-dimer was elevated CTA was performed which shows no pulmonary embolism. Vital Signs Vital signs: Vital Signs Temperature 36.6 C 09/07/22 09:55 Pulse Rate 63 09/07/22 09:55 Respiratory Rate 14 09/07/22 09:55 Blood Pressure 186/83 H 09/07/22 09:55 Pulse Oximetry 100 09/07/22 09:55 Oxygen Delivery Room Air 09/07/22 09:55 Temperature 36.6 C 09/07/22 09:55 Pulse Rate 65 09/07/22 10:55 Respiratory Rate 16 09/07/22 10:55 Blood Pressure 165/85 H 09/07/22 10:55 Pulse Oximetry 98 09/07/22 10:55 Oxygen Delivery Room Air 09/07/22 10:55 MDM - Weakness Lab Data 09/07/22 10:49 09/07/22 10:49 Labs: Lab Results 09/07/22 09/07/22 09/07/22 Range/Units 10:45 10:49 10:49 WBC (4.8-10.8) K/mm3
[2022-09-07 12:31] VITALS: BP 171/80; PULSE 70; RESP 16; TEMP 36.3; O2SAT 99
--- NOTE | 2022-09-19 14:13 | PC.NURSE ---
FINAL BLOOD CULTURE REPORT X1: NO GROWTH AFTER 5 DAYS. NO ACTION NEEDED.
== END 2022-09-07 12:45 | disposition home or self-care (01) ==
PROVIDERS: Emergency Provider Emergency Medicine; PCP Internal Medicine
DX: F41.9 Anxiety disorder, unspecified (principal); R53.1 Weakness; I10 Essential (primary) hypertension; Z79.02 Long term (current) use of antithrombotics/antiplatelets; Z79.82 Long term (current) use of aspirin; Z20.822 Contact with and (suspected) exposure to COVID-19
CPT/HCPCS: 36415; 70450; 71045; 71275; 80053; 81001; 83605; 83735; 83880; 84484; 85025; 85055; 85380; 85610; 85730; 87040; 93005; 99284; Q9967; U0003; U0005

== ENCOUNTER 2022-09-09 06:57 | Emergency (ER) | payer MEDICARE, SELFPAY ==
[2022-09-09 06:58] VITALS: BP 176/72; PULSE 62; RESP 14; TEMP 36.5; O2SAT 100
[2022-09-09 07:04] VITALS: BP 176/72; PULSE 63; RESP 15; O2SAT 99
--- NOTE | 2022-09-09 07:16 | ECG_ITS ---
Measurements Intervals [place] Rate: 64 P: 27 RI: 187 QRS: -44 QRSD: 92 T: 30 QT: 396 QTc: 411 Interpretive Statements SINUS RHYTHM LEFT AXIS DEVIATION POOR R WAVE PROGRESSION, CONSIDER ANTERIOR INFARCT BORDERLINE ST-T WAVE ABNORMALITY- HIGH LATERAL LEADS BASELINE ARTIFACT- I, II, AVR, AVF ABNORMAL ECG COMPARED TO ECG 09/07/2022 10:54:25 SINUS RHYTHM NOW PRESENT Electronically Signed On 09-09-2022 9:53:27 LINUX ENGINEER by Avery Garcia D.O.
[2022-09-09 07:31] VITALS: BP 177/82; PULSE 64; RESP 21
--- NOTE | 2022-09-09 07:40 | ED.WEAKNESS ---
HPI - Weakness General Chief complaint: Weakness Stated complaint: generalized weakness Time Seen by Provider: 09/09/22 07:04 Source: patient, family, RN notes reviewed and old records reviewed Mode of arrival: EMS Limitations: no limitations History of Present Illness HPI Narrative: This is an 81 year old female who presents for evaluation of weakness. Patient's daughter report that patient got up this morning and she felt fine. Then they report she developed sudden onset of feeling of weakness, and they had to help her sit down. Patient told them that her face was numb and she felt like she could not swallow. They reports she was talking fine. Patient denies having dizziness, chest pain, headache, focal weakness, or shortness of breath. She reports on arrival to ER that she feels better. She has been evaluated in ER 3 times for similar symptoms this week. She has had 2 CT brains, CTA chest and labs x 3 . Her blood pressure was elevated on ER visits so she was recently started on hydralazine. Related Data Allergies Allergy/AdvReac Type Severity Reaction Status Date / Time No Known Allergies Allergy Verified 09/07/22 10:08 Review of Systems Constitutional: Constitutional: Reports weakness Cardiovascular: Cardiovascular: Denies syncope, Denies rapid heart rate, Denies irregular heart rhythm, Denies leg edema and Denies dyspnea Respiratory: Respiratory: Denies chest congestion, Denies hemoptysis, Denies excessive phlegm production and Denies dyspnea Gastrointestinal: Gastrointestinal: Denies abdominal pain, Denies hematochezia, Denies diarrhea and Denies vomiting Genitourinary: Genitourinary: Denies hematuria and Denies dysuria Musculoskeletal: Musculoskeletal: Denies joint swelling, Denies loss of height and Denies muscle weakness Neurologic: Denies syncope, Denies focal weakness and Reports weakness PMFSH Past Medical History Medical History Hypertension Social History Social History Smoking status: Never smoker Alcohol intake: never Substance use: never Lack of Transportation: No Lack of Food: Never True Current Housing: I Have Housing Concerned About Future Housing: No Difficulty Paying Gas/Electric Bills: No Difficulty Paying for Meds: No Currently Unemployed: No Education: High School Diploma/GED Difficulty w/ Childcare or Family Care: No Spiritual care concerns: No Exam Narrative: GENERAL: Well-appearing, well-nourished, and in no acute distress. HEAD: Normocephalic, atraumatic NOSE: Nares clear, no rhinorrhea or epistaxis THROAT:Mucous membranes moist, Oropharynx normal without erythema, exudate, peritonsillar swelling or fluctuance NECK: Supple, without lymphadenopathy or mass RESPIRATORY: No respiratory distress, Airway patent, Respirations non-labored, Clear to auscultation without rales, rhonchi or wheeze HEART: Regular rate and rhythm. No murmur heard. Normal peripheral pulses. ABDOMEN: Soft, nontender, nondistended, normal active bowel sounds. No masses. No rebound or guarding, No organomegaly. EXTREMITIES: No edema, normal strength with full range of motion. SKIN: Warm, dry, normal color without rash NEURO: Alert and oriented x3. CN 2-12 grossly intact. No focal deficits. PSYCH: Normal mood and affect. Neuro: General: patient oriented x3, moves all extremities, no meningeal signs, no focal motor deficits and CN's II-XI intact bilaterally Cranial nerves: Yes Nystagmus not present Speech: normal speech and No Abnormal speech present Extrem: General: normal to inspection Course Course Emergency Course: Patient presented with short episode of generalized weakness. It has resolved on arrival to ER. She absolutely denies focal symptoms. I reviewed her medical records. She has been seen in ER 3 previous times this week. She was admitted to hospit
--- NOTE | 2022-09-09 07:53 | PC.NURSE ---
Patient ambulated without difficulty in ED. Patient states I feel great. EDP Maximino aware.
[2022-09-09 08:42] VITALS: BP 199/80
== END 2022-09-09 08:45 | disposition home or self-care (01) ==
PROVIDERS: Emergency Provider General Practice; PCP Internal Medicine
DX: F41.9 Anxiety disorder, unspecified (principal); I10 Essential (primary) hypertension; R94.31 Abnormal electrocardiogram [ECG] [EKG]
CPT/HCPCS: 93005; 99283

== ENCOUNTER 2024-03-25 16:59 | Emergency (ER) | payer MEDICARE, SELFPAY ==
[2024-03-25] VITALS (38 sets, daily range): BP systolic 111–199; BP diastolic 52–89; PULSE 59–68; RESP 13–21; TEMP 36.3–36.6; O2SAT 98–100
--- NOTE | 2024-03-25 17:09 | ECG_ITS ---
Test Date: 2024-03-25 17:22:11 Measurements Intervals [place] Rate: 66 P: 34 SC: 197 QRS: -55 QRSD: 104 T: 69 QT: 421 QTc: 441 Interpretive Statements SINUS RHYTHM LEFT ANTERIOR FASCICULAR BLOCK ANTEROLATERAL INFARCT, AGE INDETERMINATE BORDERLINE ST-T WAVE ABNORMALITY- DIFFUSE LEADS BASELINE ARTIFACT- I, II, III, AVR, AVL, AVF, V1, V4-V6 ABNORMAL ECG No previous ECG available for comparison Electronically Signed On 03-25-2024 19:21:27 CDT by Avery Garcia D.O.
--- NOTE | 2024-03-25 17:23 | ED.GENADULT ---
HPI - General Adult General Chief complaint: Extremity Injury, Lower Stated complaint: leg swelling Time Seen by Provider: 03/25/24 17:05 History of Present Illness HPI narrative: the patient is an 83 year old woman with history of hypertension, Elzonris, hyperlipidemia, TIA, anxiety, prior cholecystectomy and hysterectomy. She has stopped all her medications and takes no medicines at present. She presents with a 5 day history of redness on the medial aspect of the left lower leg below the knee that extends up to the knee region, tender to touch, spontaneous in onset, not associated with any trauma. No history of DVTs or thrombophlebitis. No dyspnea or chest pain or discomfort. No headache or nausea. No vomiting. No dizziness. no abdominal pain. Related Data Allergies Allergy/AdvReac Type Severity Reaction Status Date / Time No Known Allergies Allergy Verified 09/07/22 10:08 Review of Systems Review of Systems: All systems reviewed & are unremarkable except as noted in HPI and below Constitutional: Constitutional: Denies chills, Denies excessive sweating, Denies fatigue, Denies fever(s), Denies headache(s) and Denies weakness Eyes: Eyes: Denies change in vision and Denies photophobia ENT: Denies dysphagia, Denies dizziness, Denies headache(s), Denies lip swelling, Denies nasal congestion, Denies sore throat and Denies tongue swelling Cardiovascular: Cardiovascular: Denies chest pain, Denies syncope, Denies rapid heart rate and Denies dyspnea Respiratory: Respiratory: Denies cough, Denies dyspnea and Denies wheezing Gastrointestinal: Gastrointestinal: Denies abdominal pain, Denies constipation, Denies dysphagia, Denies diarrhea, Denies nausea and Denies vomiting Genitourinary: Genitourinary: Denies hematuria, Denies urinary frequency, Denies dysuria and Denies urinary urgency Musculoskeletal: Musculoskeletal: Denies back pain, Denies myalgias, Denies arthralgias, Denies joint swelling and Denies numbness Integumentary/Breasts: Skin/Breast: Denies pruritus, Reports erythema ( Rash with erythema and tenderness on the medial aspect of the left leg) and Reports rash Neurologic: Denies confusion, Denies dizziness, Denies syncope, Denies headache(s), Denies focal weakness, Denies numbness and Denies weakness Psychiatric: Psychiatric: Denies anxiety and Denies confusion Endocrine: Endocrine: Denies excessive sweating and Denies fatigue Hematologic/Lymphatic: Hematologic/Lymphatic: Denies easy bleeding and Denies easy bruising Allergic/Immunologic: Allergic/Immunologic: Denies lip swelling, Denies tongue swelling and Denies wheezing PMFSH Past Medical History Medical History Hypertension Social History Social History Smoking status: Never smoker Alcohol intake: never Substance use: never Lack of Transportation: No Lack of Food: Never True Current Housing: I Have Housing Concerned About Future Housing: No Difficulty Paying Gas/Electric Bills: No Difficulty Paying for Meds: No Currently Unemployed: No Education: High School Diploma/GED Difficulty w/ Childcare or Family Care: No Spiritual care concerns: No Exam Const: General: healthy appearing, no acute distress, alert and well nourished Nutritional Appearance: well nourished Orientation/consciousness: patient oriented x3 Limitations: no limitations HENMT: Head: normal to inspection Ears: external ears normal Face/Nose/Sinus: normal facial exam Face and sinus: normal facial exam Mouth: Yes moist mucous membranes Throat: posterior oropharynx normal Eyes: Conjunctivae: conjunctivae normal Pupils: Equal, round and reactive pupils present EOM: EOMs intact bilaterally Neck: Neck: normal visual inspection and no meningeal signs Chest: Chest palpation & inspection: normal inspection of the chest and no tenderness Resp: Effort
[2024-03-25 17:24] LABS: Basophils Absolute Auto 0.05 K/mm3 (0.00-0.10); Basophils Percent Auto 0.8 % (0.0-1.0); Eosinophils Absolute Auto 0.24 K/mm3 (0.02-0.50); Eosinophils Percent Auto 3.8 % (1.0-6.0); Hematocrit 42.4 % (35.0-42.0); Hemoglobin 14.1 g/dL (11.7-13.8); Immature Granulocyte Absolute 0.02 K/mm3 (0.00-0.00); Immature Granulocyte Percent A 0.3 % (0.0-0.0); Lymphocytes Absolute Auto 1.68 K/mm3 (1.10-4.50); Lymphocytes Percent Auto 26.3 % (18.0-42.0); Mean Corpuscular HGB Conc 33.3 g/dL (32-36); Mean Corpuscular Hemoglobin 29.9 pg (27.0-31.0); Mean Corpuscular Volume 89.8 fL (78.0-102.0); Mean Platelet Volume 11.1 fl (9.2-11.8); Monocytes Absolute Auto 0.46 K/mm3 (0.10-0.90); Monocytes Percent Auto 7.2 % (2.0-11.0); Neutrophils Absolute Auto 3.94 K/mm3 (1.70-7.20); Neutrophils Percent Auto 61.6 % (50.0-70.0); Platelet Count Result 181 K/mm3 (150-420); Red Blood Count 4.72 M/mm3 (4.20-5.40); Red Cell Distribution Width 12.5 % (11.6-14.4); White Blood Count 6.4 K/mm3 (4.8-10.8)
[2024-03-25] MEDS: hydrALAZINE HCL 20 MG/ML VIAL 10 MG IV PUSH (17:28)
[2024-03-25 17:39] LABS: D Dimer 1.92 mg/L (0.19-0.50)
[2024-03-25 17:41] LABS: Magnesium 2.1 mg/dL (1.8-2.4); Troponin I 6.4 ng/L (0.00-60.4)
[2024-03-25 17:42] LABS: Lactic Acid Reflex 0.9 mmol/L (0.4-2.0)
[2024-03-25 18:02] LABS: Alanine Aminotransferase 10 U/L (14-59); Albumin Level 3.3 g/dL (3.4-5.0); Alkaline Phosphatase 97 U/L (46-116); Anion Gap 9 mmol/L (4-12); Aspartate Amino Transferase 12 U/L (15-37); Bilirubin,Total 1.2 mg/dL (0.00-1.00); Blood Urea Nitrogen 15 mg/dL (7-18); CRP < 0.5 mg/dL (0.0-0.9); Calcium 8.9 mg/dL (8.5-10.1); Carbon Dioxide 27 mmol/L (21-32); Chloride 105 mmol/L (98-108); Creatine Kinase 48 U/L (26-192); Estimated CRCL calculation 46 ml/min; Estimated Glomerular Filt Rate > 60; Glucose 104 mg/dL (70-99); NT Pro B Type Natriuretic Pept 521 pg/mL (0-450); Osmolality Calculated 292 mOsm/kg (285-295); Potassium 3.8 mmol/L (3.5-5.1); Sodium 141 mmol/L (136-145); Total Protein 6.8 g/dL (6.4-8.2)
[2024-03-25] MEDS: ENOXAPARIN 100 MG/ML SYRINGE 87 MG SUB-Q (18:28)
[2024-03-25 18:30] LABS: Erythrocyte Sedimentation Rate 18 mm/hr (0-20)
--- NOTE | 2024-03-25 18:59 | PC.NURSE ---
Took pt to bathroom in wheelchair. Returned to room. Call light within reach.
[2024-03-25] MEDS: cloNIDine HCL 0.2 MG TABLET PO (19:27)
== END 2024-03-25 21:37 | disposition home or self-care (01) ==
PROVIDERS: Emergency Provider Emergency Medicine; PCP Internal Medicine
DX: I80.02 Phlebitis and thrombophlebitis of superficial vessels of left lower extremity (principal); I16.0 Hypertensive urgency; M79.89 Other specified soft tissue disorders; E78.5 Hyperlipidemia, unspecified; Z86.73 Personal history of transient ischemic attack (TIA), and cerebral infarction without residual deficits; Z90.49 Acquired absence of other specified parts of digestive tract; Z90.710 Acquired absence of both cervix and uterus
CPT/HCPCS: 36415; 80053; 82550; 83605; 83735; 83880; 84484; 85025; 85380; 85652; 86140; 93005; 96372; 96374; 99284; A9270; J0360; J1650

== ENCOUNTER 2024-03-27 11:25 | Outpatient (CLI) | payer MEDICARE, SELFPAY ==
--- NOTE | ~2024-03-27 | US_ITS ---
EXAMINATION:US venous doppler LE BI INDICATION:Left leg pain TECHNIQUE: Multiple grayscale, color flow and Doppler images of the right and left lower extremity de ep venous systems were obtained and reviewed. COMPARISON:No prior studies for comparison. FINDINGS: The common femoral, superficial femoral and popliteal veins demonstrate normal respiratory variation, augmentation and compressibility. Color flow is also seen within the posterior tibial, pe roneal, greater saphenous and profunda veins. There is a thrombosed varicose vein medial aspect of th e left knee. IMPRESSION: 1: No lower extremity deep venous thrombosis. 2: Thrombosed varicose vein medial aspect of the left knee. Reviewed, dictated and finalized at location [facility].
== END 2024-03-27 11:26 | disposition home or self-care (01) ==
LOC: ANHIMG 11:25
PROVIDERS: PCP Internal Medicine; Visit Provider Emergency Medicine
DX: I82.812 Embolism and thrombosis of superficial veins of left lower extremity (principal); M79.662 Pain in left lower leg; R22.42 Localized swelling, mass and lump, left lower limb
CPT/HCPCS: 93970

== ENCOUNTER 2024-11-18 05:45 | Emergency (ER) | payer MEDICARE, SELFPAY ==
--- NOTE | ~2024-11-18 | XR_ITS ---
AP neck and lateral views of the left hip Clinical history: Pain Findings: No acute fracture or dislocation is seen. Osseous alignment is anatomic. Left hip joint is intact, with probable minimal degenerative change. Soft tissues are unremarkable. Impression: Minimal degenerative change left hip joint. Reviewed, dictated and finalized at [facility]. Impression: Minimal degenerative change left hip joint.
--- NOTE | ~2024-11-18 | US_ITS ---
Duplex Sonography of the left extremity: Indication: DVT Findings: Sagittal and transverse B-mode images as well as color-flow imaging were performed on the l eft femoral and popliteal veins. B-mode examination was done without and with compression in the tra nsverse plane. There is good visualization of the common femoral, proximal profunda femoral, superfi cial femoral, greater saphenous, and popliteal veins. Normal flow was seen on color-flow imaging. No rmal compressibility was demonstrated. Visualized calf veins are also patent. Impression: No evidence of deep vein thrombosis involving the left lower extremity. Reviewed, dictated and finalized at location M. Impression: No evidence of deep vein thrombosis involving the left lower extremity.
[2024-11-18 05:46] VITALS: BP 204/62; PULSE 70; RESP 18; TEMP 36; O2SAT 99
--- OUTSIDE RECORDS SUMMARY | 2024-11-18 05:47 | XMS_ITS | Encounter Summary ---
Author Organization [facility] Address [address] [place] [id number] Care Team Providers Care Senior Engineering Associate Name Role Phone Morgan Mosley MD Primary Care Provider [phone] Encounter Details Date Type Department Care Team (Late st Contact Info) Description 02/08/2019 Abstract SFL CONVERSION [address] [place] [address] , Generic ConversionMD Social History Tobacco Use Types Packs/Day Years Used Date Smoking Tobacco: Never Assessed Comments Unknown Sex and Gender Information Value Date Recorded Sex Assigned at Not on file Legal Sex Female 5:54 PM TRAINING AND DEVELOPMENT DIRECTOR Gender Identity Not on file Sexual Orientation Not on file documented as of this encounter Plan of Treatment Not on file documented as of this encounter Visit Diagnoses Not on filedocumented in this encounter Additional Health Concerns Infection Onset Date Last Indicated Resolved Time COVID-19 Rule Out 08/13/2020 08/13/2020 08/13/2020 8:03 AM TRAINING AND DEVELOPMENT DIRECTOR documented as of this encounter Care Teams Senior Engineering Associate Relationship Specialty Start Date End Date Morgan Mosley MD [address] [place] [address] PCP - General INTERNAL MEDICINE 08/13/20 documented as of this encounter
--- OUTSIDE RECORDS SUMMARY | 2024-11-18 05:47 | XMS_ITS | Clinical Summary ---
Author Organization [facility] Address [facility] [place] [address] Care Team Providers Care Data Security Coordinator Name Role Phone Morgan Mosley MD Primary Care Provider [phone] Allergies Active Allergy Reactions Criticality Noted Date Comments Hydralazine Anxiety,Other (see comment) Medium 020 Facial Flushing Medications irbesartan 75 MG tablet Take 1 tablet (75 mg total) by mouth daily. 30 tablet 08/13/2020 Active amLODIPine 5 MG tablet Take 1 tablet (5 mg total) by mouth daily. 30 tablet 08/15/2020 Active Active Problems Problem Noted Date Diagnosed Date Hypertension 08/14/2020 Resolved Problems Problem Noted Date Diagnosed Date Resolved Date Dizziness 08/13/2020 08/15/2020 Social History Tobacco Use Types Packs/Day Years Used Date Smoking Tobacco: Never Smokeless Tobacco: Never Alcohol Use Standard Drinks/Week Comments Not Currently 0 (1 standard drink = 0.6 oz pur e alcohol) Comments No Sex and Gender Information Value Date Recorded Sex Assigned at Not on file Legal Sex Female 5:54 PM OPTOMECHANICAL ENGINEER Gender Identity Not on file Sexual Orientation Not on file Last Filed Vital Signs Vital Sign Reading Time Taken Comments Blood Pressure 150/68 08/15/2020 9:45 AM OPTOMECHANICAL ENGINEER Pulse 77 08/15/2020 9:45 AM OPTOMECHANICAL ENGINEER Temperature 35.8 C (96.4 F) 08/15/2020 7:00 AM OPTOMECHANICAL ENGINEER Respiratory Rate 3 08/15/2020 9:45 AM OPTOMECHANICAL ENGINEER Oxygen Saturation 99% 08/15/2020 7:00 AM OPTOMECHANICAL ENGINEER Inhaled Oxygen Concentration - - Weight 86.5 kg (190 lb 9.6 oz) 08/13/2020 8:30 P M OPTOMECHANICAL ENGINEER Height 165.1 cm (5' 5 ) 08/13/2020 8:30 PM OPTOMECHANICAL ENGINEER Body Mass Index 31.72 08/13/2020 8:30 PM OPTOMECHANICAL ENGINEER Plan of Treatment Health Maintenance Due Date Last Done Comments DTaP, Tdap and Td Vaccines ( 1 - Tdap) 1959 Zoster Vaccines (1 of 2) 1990 Annual Medicare Wellness Visit 2005 Dexa Scan (General) 2005 Pneumococcal Vaccine: 65+ Ye ars (1 of 1 - PCV) 2005 RSV Immunization or 60+ Years (1 - 1-dose 75+ series) 2015 COVID-19 Vaccine ( - 2023-2 5 season) 2024 Influenza Adult (#1) 2024 Meningococcal B Vaccine Aged Out No l onger eligible based on patient's age to complete this topic Meningococcal Vaccine Aged Out No gloria erna eligible based on patient's age to complete this topic RSV Immunizations Under 20 Months Aged Out No longer eligible based on patient's age to complete this topic Insurance [facility] Advance Directives * Full Code (Latest Code Status on File) Date Activated Date Inactivated Comments 08/14/2020 2:46 AM 08/15/2020 12:29 PM Care Teams Data Security Coordinator Relationship Specialty Start Date End Date Morgan Mosley MD [address] [place] [id number] (work) PCP - General INTERNAL MEDICINE 08/13/20
[2024-11-18 06:06] LABS: Basophils Absolute Auto 0.05 K/mm3 (0.00-0.10); Basophils Percent Auto 0.9 % (0.0-1.0); Eosinophils Absolute Auto 0.18 K/mm3 (0.02-0.50); Eosinophils Percent Auto 3.3 % (1.0-6.0); Hematocrit 43.6 % (35.0-42.0); Hemoglobin 14.1 g/dL (11.7-13.8); Immature Granulocyte Absolute 0.01 K/mm3 (0.00-0.00); Immature Granulocyte Percent A 0.2 % (0.0-0.0); Lymphocytes Absolute Auto 1.52 K/mm3 (1.10-4.50); Lymphocytes Percent Auto 27.6 % (18.0-42.0); Mean Corpuscular HGB Conc 32.3 g/dL (32-36); Mean Corpuscular Hemoglobin 28.7 pg (27.0-31.0); Mean Corpuscular Volume 88.8 fL (78.0-102.0); Mean Platelet Volume 10.8 fl (9.2-11.8); Monocytes Absolute Auto 0.41 K/mm3 (0.10-0.90); Monocytes Percent Auto 7.4 % (2.0-11.0); Neutrophils Absolute Auto 3.34 K/mm3 (1.70-7.20); Neutrophils Percent Auto 60.6 % (50.0-70.0); Platelet Count Result 184 K/mm3 (150-420); Red Blood Count 4.91 M/mm3 (4.20-5.40); Red Cell Distribution Width 13.1 % (11.6-14.4); White Blood Count 5.5 K/mm3 (4.8-10.8)
[2024-11-18 06:20] LABS: Alanine Aminotransferase 9 U/L (14-59); Albumin Level 3.4 g/dL (3.4-5.0); Alkaline Phosphatase 108 U/L (46-116); Anion Gap 4 mmol/L (4-12); Aspartate Amino Transferase 15 U/L (15-37); Bilirubin,Total 1.2 mg/dL (0.00-1.00); Blood Urea Nitrogen 19 mg/dL (7-18); Calcium 9.6 mg/dL (8.5-10.1); Carbon Dioxide 30 mmol/L (21-32); Chloride 107 mmol/L (98-108); Estimated CRCL calculation 38 ml/min; Estimated Glomerular Filt Rate 51; Glucose 97 mg/dL (70-99); Osmolality Calculated 294 mOsm/kg (285-295); Potassium 4.2 mmol/L (3.5-5.1); Sodium 141 mmol/L (136-145)
[2024-11-18 06:22] LABS: D Dimer 0.73 mg/L (0.19-0.50)
--- NOTE | 2024-11-18 06:24 | PC.NURSE ---
Pt critical test reported to Dr Smith, will order u/s this AM, ERP informed pt and her daughter on POC.
[2024-11-18 06:28] VITALS: BP 174/83; PULSE 67; RESP 18; O2SAT 100
--- NOTE | 2024-11-18 06:29 | ED_ITS ---
HPI - Extremity Problem General Chief complaint: Extremity Problem,Nontraumatic <Lexii Smith MD - Last Filed: 11/18/24 06:52> Stated complaint: leg/hip pain <Lexii Smith MD - Last Filed: 11/18/24 06:52> Time Seen by Provider: 11/18/24 07:08 <Lexii Smith MD - Last Filed: 11/18/24 06:52> Source: patient <Lexii Smith MD - Last Filed: 11/18/24 06:52> Mode of arrival: ambulatory <Lexii Smith MD - Last Filed: 11/18/24 06:52> Limitations: no limitations <Lexii Smith MD - Last Filed: 11/18/24 06:52> History of Present Illness HPI Narrative: 84 years old white female came to the ED by private car complaining of left hip pain , pain behind left knee and left calf muscle pain started for a while, getting worse. Patient denies any trauma. <Lexii Smith MD - Last Filed: 11/18/24 06:52> Related Data Allergies/Adverse reactions: Allergies Allergy/AdvReac Type Severity Reaction Status Date / Time No Known Allergies Allergy Verified 09/07/22 10:08 <Lexii Smith MD - Last Filed: 11/18/24 06:52> Review of Systems 2 Review of Systems: All systems reviewed & are unremarkable except as noted in HPI and below <Lexii Smith MD - Last Filed: 11/18/24 06:52> [facility] Past Medical History Medical History: Medical History Hypertension <Lexii Smith MD - Last Filed: 11/18/24 06:52> Social History Social History: Social History Smoking status: Never smoker Alcohol intake: never Substance use: never Lack of Transportation: No Lack of Food: Never True Current Housing: I Have Housing Concerned About Future Housing: No Difficulty Paying Gas/Electric Bills: No Difficulty Paying for Meds: No Currently Unemployed: No Education: High School Diploma/GED Difficulty w/ Childcare or Family Care: No Spiritual care concerns: No <Lexii Smith MD - Last Filed: 11/18/24 06:52> Exam 2 Narrative: General appearance: Well-developed, well-nourished Skin: Normal color Head: Normocephalic, nontraumatic Eyes: Clear conjunctiva ENT: Oropharynx normal, ears normal, nose normal Neck: Supple, nontender Chest and respiratory: Airway patent, no respiratory distress, no accessory muscle use Heart: Regular rate/rhythm Abdomen: Soft, nontender, no organomegaly, quiet bowel sounds Vascular: Normal peripheral pulses, normal capillary refill. Musculoskeletal: Limited range of motion at the left hip because of pain, diffuse tenderness behind left knee and left calf, no swelling, no deformity Neurologic: Alert and oriented ?3, MACHINE CANDLE MOLDER is normal as tested, no gross motor deficit <Lexii Smith MD - Last Filed: 11/18/24 06:52> Course Consultations Consultation #1: patient was signed out to the coming physician at shift change waiting venous Doppler result and disposition <Lexii Smith MD - Last Filed: 11/18/24 06:52> Date: 11/18/24 <Lexii Smith MD - Last Filed: 11/18/24 06:52> Time: 06:52 <Lexii Smith MD - Last Filed: 11/18/24 06:52> Vital Signs Vital signs: Vital Signs Temperature 36.0 C L 11/18/24 05:46 Pulse Rate 70 11/18/24 05:46 Respiratory Rate 18 11/18/24 05:46 Blood Pressure 204/62 H 11/18/24 05:46 Pulse Oximetry 99 11/18/24 05:46 Oxygen Delivery Room Air 11/18/24 05:46 Temperature 36.0 C L 11/18/24 05:46 Pulse Rate 67 11/18/24 06:28 Respiratory Rate 18 11/18/24 06:28 Blood Pressure 174/83 H 11/18/24 06:28 Pulse Oximetry 100 11/18/24 06:28 Oxygen Delivery Room Air 11/18/24 06:28 <Lexii Smith MD - Last Filed: 11/18/24 06:52> Vital Signs Temperature 36.0 C L 11/18/24 05:46 Pulse Rate 70 11/18/24 05:46 Respiratory Rate 18 11/18/24 05:46 Blood Pressure 204/62 H 11/18/24 05:46 Pulse Oximetry 99 11/18/24 05:46 Oxygen Delivery Room Air 11/18/24 05:46 Temperature 36.0 C L 11/18/24 05:46 Pulse Rate 67 11/18/24 06:28 Respiratory Rate 18 11/18/24 06:28 Blood Pressure 174/83 H 11/18/24 06:28 Pulse Oximetry 100 11/18/24 06:28 Oxygen Delivery Room Air 11/18/24 06:28 <Nestor Hall MD - Last Filed: 11/18/24 07:49> MDM - Extremity (Nontraumatic) MDM Narrative Medical decision making narrative: ?Patient placed in room:1 ? History and physical was performed. [place] 5 was given which improved her pain. X-ray left hip showed minimum degenerative changes. CBC unremarkable D-dimer 0.73 BUN 19 creatinine 1.03 estimated GFR 51 total bilirubin 1.2 rest of her CMP was unremarkable. Venous Doppler ultrasound was negative for DVT 7:40 a.m. at wrist patient does not have any pain but when she moves her left leg and flexes her hip she refers pain to her thighs anteriorly. 7:47 a.m. patient Got up out of the wheelchair by herself and ambulated in the hallway well her normal self. Daughter said she had a spot on her forehead and wondered if she had fallen patient's denies any fall she said she had a pimple there she was picking at it it is nontender. Independent Historian: External Source Review: Differential Dx includes but not limited to: DVT degenerative joint disease myalgia Medications were Reviewed: home meds reviewed Medications given: [place] 5 Independently Interpreted by me: labs independently interpreted by me. Shared decision Making: Evaluation was discussed with the patient and her daughter all questions were asked and answered and they agreed with the plan. Patient would follow up with Dr. Mosley take Tylenol as needed. She will return if she got worse or develops any new symptoms. Social Situation Impacting Patients Care: Patient has dementia lives by herself for 1 daughter lives next door Discussed with Dr. MENDEZ DIAGNOSIS: left lower extremity pain DISPOSITION : discharge home CONDITION AT DISCHARGE: stable <Nestor Hall MD - Last Filed: 11/18/24 07:49> Lab Data Result diagrams: 11/18/24 06:01 11/18/24 06:01 <Lexii Smith MD - Last Filed: 11/18/24 06:52> Labs: Lab Results 11/18/24 Range/Units 06:01 WBC 5.5 (4.8-10.8) K/mm3 RBC 4.91 (4.20-5.40) M/mm3 Hgb 14.1 H (11.7-13.8) g/dL Hct 43.6 H (35.0-42.0) % MCV 88.8 (78.0-102.0) fL MCH 28.7 (27.0-31.0) pg MCHC 32.3 (32-36) g/dL RDW 13.1 (11.6-14.4) % Plt Count 184 (150-420) K/mm3 MPV 10.8 (9.2-11.8) fl Immature Gran % (Auto) 0.2 H (0.0-0.0) % Neut % (Auto) 60.6 (50.0-70.0) % Lymph % (Auto) 27.6 (18.0-42.0) % Cocke % (Auto) 7.4 (2.0-11.0) % Eos % (Auto) 3.3 (1.0-6.0) % Baso % (Auto) 0.9 (0.0-1.0) % Lymph # (Auto) 1.52 (1.10-4.50) K/mm3 Cocke # (Auto) 0.41 (0.10-0.90) K/mm3 Eos # (Auto) 0.18 (0.02-0.50) K/mm3 Baso # (Auto) 0.05 (0.00-0.10) K/mm3 Abs Immat Gran (auto) 0.01 H (0.00-0.00) K/mm3 Absolute Neuts (auto) 3.34 (1.70-7.20) K/mm3 Absolute Nucleated RBC 0.00 (0.00-0.00) K/mm3 Nucleated RBC % 0.0 (0-0.0) % APTT 26.0 (23.9-30.70) Sec D-Dimer 0.73 H* (0.19-0.50) mg/L Sodium 141 (136-145) mmol/L Potassium 4.2 (3.5-5.1) mmol/L Chloride 107 (98-108) mmol/L Carbon Dioxide 30 (21-32) mmol/L Anion Gap 4 (4-12) mmol/L BUN 19 H (7-18) mg/dL Creatinine 1.03 H (0.55-1.02) mg/dL Estim Creat Clear Calc 38 ml/min Estimated GFR 51 L (59 - ) Glucose 97 (70-99) mg/dL Calculated Osmolality 294 (285-295) mOsm/kg Calcium 9.6 (8.5-10.1) mg/dL Total Bilirubin 1.2 H (0.00-1.00) mg/dL AST 15 (15-37) U/L ALT 9 L (14-59) U/L Alkaline Phosphatase 108 (46-116) U/L Total Protein 7.0 (6.4-8.2) g/dL Albumin 3.4 (3.4-5.0) g/dL <Lexii Smith MD - Last Filed: 11/18/24 06:52> Lab Results 11/18/24 Range/Units 06:01 WBC 5.5 (4.8-10.8) K/mm3 RBC 4.91 (4.20-5.40) M/mm3 Hgb 14.1 H (11.7-13.8) g/dL Hct 43.6 H (35.0-42.0) % MCV 88.8 (78.0-102.0) fL MCH 28.7 (27.0-31.0) pg MCHC 32.3 (32-36) g/dL RDW 13.1 (11.6-14.4) % Plt Count 184 (150-420) K/mm3 MPV 10.8 (9.2-11.8) fl Immature Gran % (Auto) 0.2 H (0.0-0.0) % Neut % (Auto) 60.6 (50.0-70.0) % Lymph % (Auto) 27.6 (18.0-42.0) % Cocke % (Auto) 7.4 (2.0-11.0) % Eos % (Auto) 3.3 (1.0-6.0) % Baso % (Auto) 0.9 (0.0-1.0) % Lymph # (Auto) 1.52 (1.10-4.50) K/mm3 Cocke # (Auto) 0.41 (0.10-0.90) K/mm3 Eos # (Auto) 0.18 (0.02-0.50) K/mm3 Baso # (Auto) 0.05 (0.00-0.10) K/mm3 Abs Immat Gran (auto) 0.01 H (0.00-0.00) K/mm3 Absolute Neuts (auto) 3.34 (1.70-7.20) K/mm3 Absolute Nucleated RBC 0.00 (0.00-0.00) K/mm3 Nucleated RBC % 0.0 (0-0.0) % APTT 26.0 (23.9-30.70) Sec D-Dimer 0.73 H* (0.19-0.50) mg/L Sodium 141 (136-145) mmol/L Potassium 4.2 (3.5-5.1) mmol/L Chloride 107 (98-108) mmol/L Carbon Dioxide 30 (21-32) mmol/L Anion Gap 4 (4-12) mmol/L BUN 19 H (7-18) mg/dL Creatinine 1.03 H (0.55-1.02) mg/dL Estim Creat Clear Calc 38 ml/min Estimated GFR 51 L (59 - ) Glucose 97 (70-99) mg/dL Calculated Osmolality 294 (285-295) mOsm/kg Calcium 9.6 (8.5-10.1) mg/dL Total Bilirubin 1.2 H (0.00-1.00) mg/dL AST 15 (15-37) U/L ALT 9 L (14-59) U/L Alkaline Phosphatase 108 (46-116) U/L Total Protein 7.0 (6.4-8.2) g/dL Albumin 3.4 (3.4-5.0) g/dL <Nestor Hall MD - Last Filed: 11/18/24 07:49> Imaging Data Radiologist's impression: Impressions Hip X-Ray 11/18/24 06:17 Impression: Minimal degenerative change left hip joint. <Lexii Smith MD - Last Filed: 11/18/24 06:52> Critical Care Time Critical Care Time Critical Care Time: No <Lexii Smith MD - Last Filed: 11/18/24 06:52> Discharge Plan Discharge Patient Language: Latvian <Lexii Smith MD - Last Filed: 11/18/24 06:52> Prescriptions: No Action lisinopril 20 mg tablet 20 mg PO DAILY Qty: 30 2RF <Lexii Smith MD - Last Filed: 11/18/24 06:52> Follow-up/Referrals: UNKNOWN,DOCTOR [Primary Care Provider] - <Lexii Smith MD - Last Filed: 11/18/24 06:52>
[2024-11-18] MEDS: HYDROcodone/acetaminophen (*CRX) 5-325 MG TABLET 1 TAB PO (06:38)
[2024-11-18] MEDS: lisinopriL 20 MG TABLET PO (06:42)
--- NOTE | 2024-11-18 06:47 | PC.NURSE ---
Pt taken for u/s as per order.
[2024-11-18 07:30] VITALS: BP 149/58; PULSE 52; RESP 16; TEMP 36.5; O2SAT 98
[2024-11-18 07:38] VITALS: BP 149/58; PULSE 58
== END 2024-11-18 07:55 | disposition home or self-care (01) ==
PROVIDERS: Emergency Medicine; Emergency Provider Emergency Medicine
DX: M79.605 Pain in left leg (principal); I10 Essential (primary) hypertension
CPT/HCPCS: 36415; 73502; 80053; 85025; 85380; 85730; 93971; 99284; A9270

== ENCOUNTER 2024-11-18 12:25 | Observation (INO) | payer MEDICARE, SELFPAY ==
--- NOTE | ~2024-11-18 | CT_ITS ---
EXAMINATION: CT cervical spine wo con DATE: 11/18/2024 13:16 INDICATION: Patient with dementia presenting with couple days of neck pain and difficulty walking pos t possible fall. TECHNIQUE: Computed tomography (CT) of the cervical spine was performed without intravenous contrast. Automated exposure control and iterative reconstruction technique were employed. The dose-length pro duct was 181.75 mGy-cm. COMPARISON: None FINDINGS: Mild reversal of the normal lordosis in the lower cervical spine with 120 mm anterolisthesis C4 on C5 . Vertebral body heights are normal. No fracture. Moderate disc height loss at C5-C6 and C6-C7. Mild disc height loss at C3-C4 and C4-C5. Moderate right-sided and severe left-sided uncovertebral osteoar thritis at C3-C4, C5-C6 and C6-C7. Severe facet osteoarthritis on the left at C3-C4, C4-C5 and bilate rally visualized upper thoracic spine. There is additional scattered mild to moderate cervical facet and uncovertebral osteoarthritis. Small disc bulges and posterior disc osteophyte complexes resulting in minimal to mild central canal stenosis most prominent at C5-C6. There is also multilevel bilatera l minimal to mild neural foraminal stenosis most prominent on the left at C3-C4. Atherosclerotic calc ifications at the bilateral carotid bulbs. 2.3 cm left thyroid mass, unchanged since 09/07/2022. IMPRESSION: 1. Moderate cervical spondylosis. No acute osseous abnormality. 2. 2.3 cm left thyroid mass, stable since 09/07/2022 and given patient age, further workup is likely un necessary. Reviewed, dictated and finalized at location A. IMPRESSION: 1. Moderate cervical spondylosis. No acute osseous abnormality. 2. 2.3 cm left thyroid mass, stable since 09/07/2022 and given patient age, furth er workup is likely unnecessary.
--- NOTE | ~2024-11-18 | XR_ITS ---
XR femur LT min 2V Ordering provider: Nestor Hall MD History: . FALL, LEFT HIP/LEG PAIN, DIFFICULTY WALKING . Comparison: None. FINDINGS: BONES: No acute fracture or dislocation. JOINT SPACES: Severe left hip osteoarthritic changes. Severe left hip. Osteoarthritic changes. SOFT TISSUES: Normal. IMPRESSION: No acute osseous abnormality left femur. 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 Reviewed, dictated and finalized at location A.
--- NOTE | ~2024-11-18 | CT_ITS ---
Non-contrast CT scan of the Pelvis Clinical indication: Status post fall, pain Technique: 2.5 mm axial scans were obtained through the pelvis without intravenous or oral contrast. Dose reduction technique was used on this scan by utilizing automated exposure control and iterative reconstruction technique. The dose-length product (DLP) was 181.75 mGy-cm. Findings: There is sigmoid diverticulosis. No bowel obstruction evident in the visualized pelvis. Sma ll to moderate fat-containing umbilical hernia noted. Urinary bladder unremarkable aside from tiny bu bbles of air. Status post hysterectomy. No pelvic mass. No ascites. No acute fracture or dislocation seen. There is mild degenerative change of both hip joints, mild sup erior joint space narrowing. Bilateral SI joints and straight minimal degenerative change. No periphe ral soft tissue mass or fluid collection evident. Visualized musculature unremarkable. Impression: No fracture or dislocation. Mild degenerative change of both hip joints. Small to moderate fat-containing umbilical hernia. Sigmoid diverticulosis. Reviewed, dictated and finalized at location . Impression: No fracture or dislocation. Mild degenerative change of both hip joints. Small to moderate fat-containing umbilical hernia. Sigmoid diverticulosis.
--- NOTE | ~2024-11-18 | CT_ITS ---
EXAMINATION: CT lumbar spine wo con DATE: 11/18/2024 13:16 INDICATION: Patient with dementia presenting with a few days of back pain and difficulty walking post possible fall TECHNIQUE: Computed tomography (CT) of the lumbar spine was performed without intravenous contrast. A utomated exposure control and iterative reconstruction technique were employed. The dose-length produ ct was 181.75 mGy-cm. COMPARISON: None FINDINGS: 3 mm anterolisthesis L3 on L4 and L4 on L5. Vertebral body heights are normal. No fracture. Moderate disc height loss at T10-T11 through T12-L1 and at L4-L5. Mild disc height loss at L3-L4 and L5-S1. Se danielle facet osteoarthritis bilaterally at L3-L4, L4-L5 and on the right at L2-L3. Moderate facet osteo arthritis and remainder of the lumbar spine. Disc bulges at L2-L3 through L5-S1 resulting in moderate central canal stenosis at L3-L4 and mild central canal stenosis at the remaining levels. There is mi ld to moderate neural foraminal stenosis bilaterally at L2-L3 through L4-L5 with mild neural from zain nosis remaining lumbar levels. Paravertebral soft tissues are unremarkable. There are couple low-atte nuation left renal cysts the larger measuring 1.4 cm. IMPRESSION: 1. Moderate lumbar and lower thoracic spondylosis with no acute osseous abnormality. Reviewed, dictated and finalized at location A. IMPRESSION: 1. Moderate lumbar and lower thoracic spondylosis with no acute osseous abnorma lity.
[2024-11-18 12:25] VITALS: BP 172/56; PULSE 62; RESP 18; TEMP 35.8; O2SAT 100
--- NOTE | 2024-11-18 12:36 | ED.GENADULT ---
HPI - General Adult General Chief complaint: Extremity Problem,Nontraumatic Stated complaint: leg pain Time Seen by Provider: 11/18/24 12:32 History of Present Illness HPI narrative: 84-year-old white female seen earlier today in the emergency department complaining of left thigh pain. She had minimal degenerative changes of the left hip on x-ray and a negative DVT with unremarkable labs and was sent home. She is able to get up from a wheelchair and walk back and forth from the emergency room department without any difficulty. Now she was brought by EMS complaining the same pain. Inability to ambulate. They gave her Toradol on the way into the emergency department. She has severe dementia and cannot remember that she had come in earlier. Her daughter who lives in the house next to her said she took her home and then was called by the patient crying 2 hours later. She found her sitting on the bed saying that she could move that she was unable to get her recliner. Her daughter helped her to the recliner and then called the ambulance. At 11:15 a.m. she gave her some Aleve. She kept complaining of pain in left thigh area. Otherwise she was drinking and voiding fine denies any shortness of breath cough or fever or any other complaints. Said she could move that left leg and that hurt. Denies any other complaints. Related Data Allergies Allergy/AdvReac Type Severity Reaction Status Date / Time No Known Allergies Allergy Verified 11/18/24 12:34 Review of Systems Review of Systems: All systems reviewed & are unremarkable except as noted in HPI and below PMFSH Past Medical History Medical History Hypertension Social History Social History Smoking status: Never smoker Alcohol intake: never Substance use: never Lack of Transportation: No Lack of Food: Never True Current Housing: I Have Housing Concerned About Future Housing: No Difficulty Paying Gas/Electric Bills: No Difficulty Paying for Meds: No Currently Unemployed: No Education: High School Diploma/GED Difficulty w/ Childcare or Family Care: No Spiritual care concerns: No Exam Narrative: White female adult in the patient with no apparent distress.? Head normocephalic, atraumatic.? Eyes conjunctiva pink sclera nonicteric.? Extraocular movements are intact.? Ears externally normal.? Oropharynx is clear with moist mucous membranes without exudates.? Neck is supple nontender no lymphadenopathy.? Back is nontender.? Lungs are clear.? Heart is regular rate and rhythm without murmurs gallops or rubs.? Chest wall nontender. Abdomen is soft and nontender no hepatosplenomegaly or masses no CVA tenderness no abdominal bruits.? Extremities: Left hip nontender she can barely left her left leg to bend the knee. She is able to sit up and stand up and this time she has an antalgic gait took about 4 steps. This is definitely different from her previous ambulation up and down the ED always before she left and different in that she got up from wheelchair at that time all by herself. She has no cyanosis clubbing or edema.? Skin is warm and dry without rashes or lesions.? Neurological patient is alert and oriented x4.? Motor and sensory grossly intact.? Gait is antalgic. patient has severe dementia she can not remember coming in earlier today she thought it was yesterday. She thought she was brought by her daughter as opposed to EMS. When questioning patient about anything patient automatically looks to her daughter and tries to get her daughter to answer the question for her. Course Vital Signs Vital signs: Vital Signs Temperature 35.8 C L 11/18/24 12:25 Pulse Rate 62 11/18/24 12:25 Respiratory Rate 18 11/18/24 12:25 Blood Pressure 172/56 H 11/18/24 12:25 Pulse Oximetry 100 11/18/24 12:25 Oxygen Delivery Room Air 11/18/24 12:25 Temperature 36.3 C L 11/18/24 14:20 Pulse Rate 85 11/18/24 14:20 Respiratory Rate 16 11/18/24 14:20 Blood Pressure 132/88 11/18/24 14:20 Pulse Oximetry 97 11/18/24 14:20 Oxygen Delivery Room Air 11/18/24 14:20 Medical Decision Making [facility] Narrative Medical decision making narrative: patient placed in room 4 by EMS: History and physical performed. Daughter present. CT lumbar spine: . Moderate lumbar and lower thoracic spondylosis with no acute osseous abnormality. CT pelvis: No fracture or dislocation. Mild degenerative change of both hip joints. Small to moderate fat-containing umbilical hernia. Sigmoid diverticulosis. CT cervical spine: 1. Moderate cervical spondylosis. No acute osseous abnormality. 2. 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 ? X-ray femur left: No acute osseous abnormality left femur. 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 Independent Historian: Daughter External Source Review: Differential Dx includes but not limited to: Occult fracture spinal fracture femur fracture cold Medications were Reviewed: Medications given: [place] 5 Independently Interpreted by me: Shared decision Making: Evaluation was discussed with the patient her her daughter all questions were asked and answered and they agreed with the plan to admit have physical therapy evaluate her. Possible custodial patient placement. Discharge diagnosis non ambulatory dementia pain in left lower extremity Social Situation Impacting Patients Care: Discussed with nurse practitioner Nilda Jefferson patient will be admitted with non ambulatory diagnosis dimension pain left lower extremity. DISCHARGE DIAGNOSIS: nonambulatory pain left lower extremity with degenerative arthritis left hip and knee dementia nonambulatory DISPOSITION : admit to inpatient CONDITION AT DISCHARGE: stable Vital Signs Vital Signs: Vital Signs Temperature 35.8 C L 11/18/24 12:25 Pulse Rate 62 11/18/24 12:25 Respiratory Rate 18 11/18/24 12:25 Blood Pressure 172/56 H 11/18/24 12:25 Pulse Oximetry 100 11/18/24 12:25 Oxygen Delivery Room Air 11/18/24 12:25 Temperature 36.3 C L 11/18/24 14:20 Pulse Rate 85 11/18/24 14:20 Respiratory Rate 16 11/18/24 14:20 Blood Pressure 132/88 11/18/24 14:20 Pulse Oximetry 97 11/18/24 14:20 Oxygen Delivery Room Air 11/18/24 14:20 Discharge Plan Discharge Additional Instructions: admit for physical therapy evaluation and pain control Patient Language: Haitian Prescriptions: No Action lisinopril 20 mg tablet 20 mg PO DAILY Qty: 30 2RF Follow-up/Referrals: UNKNOWN,DOCTOR [Primary Care Provider] -
--- OUTSIDE RECORDS SUMMARY | 2024-11-18 13:44 | XMS_ITS | Encounter Summary ---
Author Organization [facility] Address [address] [place] [id number] Care Team Providers Care Insert Cutter Name Role Phone Morgan Mosley MD Primary Care Provider [phone] Encounter Details Date Type Department Care Team (Late st Contact Info) Description 02/08/2019 Abstract SFL CONVERSION [address] [place] [address] , Generic ConversionMD Social History Tobacco Use Types Packs/Day Years Used Date Smoking Tobacco: Never Assessed Comments Unknown Sex and Gender Information Value Date Recorded Sex Assigned at Not on file Legal Sex Female 5:54 PM STATION DETECTIVE Gender Identity Not on file Sexual Orientation Not on file documented as of this encounter Plan of Treatment Not on file documented as of this encounter Visit Diagnoses Not on filedocumented in this encounter Additional Health Concerns Infection Onset Date Last Indicated Resolved Time COVID-19 Rule Out 08/13/2020 08/13/2020 08/13/2020 8:03 AM STATION DETECTIVE documented as of this encounter Care Teams Insert Cutter Relationship Specialty Start Date End Date Morgan Mosley MD [address] [place] [address] PCP - General INTERNAL MEDICINE 08/13/20 documented as of this encounter
--- OUTSIDE RECORDS SUMMARY | 2024-11-18 13:44 | XMS_ITS | Clinical Summary ---
Author Organization [facility] Address [facility] [place] [address] Care Team Providers Care Production Truck Driver Name Role Phone Morgan Mosley MD Primary Care Provider [phone] Allergies Active Allergy Reactions Criticality Noted Date [...] on file Legal Sex Female 5:54 PM INSPECTOR EXHAUST EMISSIONS Gender Identity Not on file Sexual Orientation Not on file Last Filed Vital Signs Vital Sign Reading Time Taken Comments Blood Pressure 150/68 08/15/2020 9:45 AM INSPECTOR EXHAUST EMISSIONS Pulse 77 08/15/2020 9:45 AM INSPECTOR EXHAUST EMISSIONS Temperature 35.8 C (96.4 F) 08/15/2020 7:00 AM INSPECTOR EXHAUST EMISSIONS Respiratory Rate 3 08/15/2020 9:45 AM INSPECTOR EXHAUST EMISSIONS Oxygen Saturation 99% 08/15/2020 7:00 AM INSPECTOR EXHAUST EMISSIONS Inhaled Oxygen Concentration - - Weight 86.5 kg (190 lb 9.6 oz) 08/13/2020 8:30 P M INSPECTOR EXHAUST EMISSIONS Height 165.1 cm (5' 5 ) 08/13/2020 8:30 PM INSPECTOR EXHAUST EMISSIONS Body Mass Index 31.72 08/13/2020 8:30 PM INSPECTOR EXHAUST EMISSIONS Plan of Treatment Health Maintenance Due Date [...] patient's age to complete this topic Insurance [facility] Advance Directives * Full Code (Latest Code Status on File) Date Activated Date Inactivated Comments 08/14/2020 2:46 AM 08/15/2020 12:29 PM Care Teams Production Truck Driver Relationship Specialty Start Date End Date Morgan Mosley MD [address] [place] [phone] (work) PCP - General INTERNAL MEDICINE 08/13/20
--- OUTSIDE RECORDS SUMMARY | 2024-11-18 14:18 | XMS_ITS | Encounter Summary ---
Author Organization [facility] Address [address] [place] [address] Care Team Providers Care Associate Financial Representative Name Role Phone Morgan Mosley MD Primary Care Provider Encounter Details Date Type Department Care Team (Late st Contact Info) Description 02/08/2019 Abstract SFL CONVERSION [address] [place] [address] , Generic ConversionMD Social History Tobacco Use Types Packs/Day Years Used Date Smoking Tobacco: Never Assessed Comments Unknown Sex and Gender Information Value Date Recorded Sex Assigned at Not on file Legal Sex Female 5:54 PM CONSTRUCTION MILLWRIGHT Gender Identity Not on file Sexual Orientation Not on file documented as of this encounter Plan of Treatment Not on file documented as of this encounter Visit Diagnoses Not on filedocumented in this encounter Additional Health Concerns Infection Onset Date Last Indicated Resolved Time COVID-19 Rule Out 08/13/2020 08/13/2020 08/13/2020 8:03 AM CONSTRUCTION MILLWRIGHT documented as of this encounter Care Teams Associate Financial Representative Relationship Specialty Start Date End Date Morgan Mosley MD [address] [place] [address] PCP - General INTERNAL MEDICINE 08/13/20 documented as of this encounter
--- OUTSIDE RECORDS SUMMARY | 2024-11-18 14:18 | XMS_ITS | Clinical Summary ---
Author Organization [facility] Address [facility] [place] [address] Care Team Providers Care Insurance Special Agent Name Role Phone Morgan Mosley MD Primary Care Provider [phone] Allergies Active Allergy Reactions Criticality Noted Date [...] on file Legal Sex Female 5:54 PM ELECTRIC BLANKET WIRER Gender Identity Not on file Sexual Orientation Not on file Last Filed Vital Signs Vital Sign Reading Time Taken Comments Blood Pressure 150/68 08/15/2020 9:45 AM ELECTRIC BLANKET WIRER Pulse 77 08/15/2020 9:45 AM ELECTRIC BLANKET WIRER Temperature 35.8 C (96.4 F) 08/15/2020 7:00 AM ELECTRIC BLANKET WIRER Respiratory Rate 3 08/15/2020 9:45 AM ELECTRIC BLANKET WIRER Oxygen Saturation 99% 08/15/2020 7:00 AM ELECTRIC BLANKET WIRER Inhaled Oxygen Concentration - - Weight 86.5 kg (190 lb 9.6 oz) 08/13/2020 8:30 P M ELECTRIC BLANKET WIRER Height 165.1 cm (5' 5 ) 08/13/2020 8:30 PM ELECTRIC BLANKET WIRER Body Mass Index 31.72 08/13/2020 8:30 PM ELECTRIC BLANKET WIRER Plan of Treatment Health Maintenance Due Date [...] patient's age to complete this topic Insurance [facility] Advance Directives * Full Code (Latest Code Status on File) Date Activated Date Inactivated Comments 08/14/2020 2:46 AM 08/15/2020 12:29 PM Care Teams Insurance Special Agent Relationship Specialty Start Date End Date Morgan Mosley MD [address] [place] [phone] (work) PCP - General INTERNAL MEDICINE 08/13/20
[2024-11-18 14:20] VITALS: BP 132/88; PULSE 85; RESP 16; TEMP 36.3; O2SAT 97
[2024-11-18] MEDS: HYDROcodone/acetaminophen (*CRX) 5-325 MG TABLET 1 TAB PO (15:08)
[2024-11-18 16:00] VITALS: BP 144/54; PULSE 53; RESP 18; TEMP 36.1; O2SAT 100
--- NOTE | 2024-11-18 16:00 | ADMGEN ---
This patient, Fatuma Nolasco, was admitted to 2nd Floor Room 206-1. Patient/family oriented to hospital policies and general routines including ID bracelet, bed and alarms, visiting hours, pain management, procedures, bathroom and other care routines, personal items, smoking policy, room service/diet, and visiting hours. Information on how to activate the Rapid Response Team has been discussed. Patient/Family are encouraged to report perceived risks to care and to ask questions if they do not understand what they are told or what they should do.
[2024-11-18 16:26] LABS: Hematocrit 41.7 % (35.0-42.0); Hemoglobin 13.4 g/dL (11.7-13.8); Mean Corpuscular HGB Conc 32.1 g/dL (32-36); Mean Corpuscular Hemoglobin 28.8 pg (27.0-31.0); Mean Corpuscular Volume 89.5 fL (78.0-102.0); Mean Platelet Volume 10.7 fl (9.2-11.8); Platelet Count Result 194 K/mm3 (150-420); Red Blood Count 4.66 M/mm3 (4.20-5.40); Red Cell Distribution Width 13.1 % (11.6-14.4); White Blood Count 5.8 K/mm3 (4.8-10.8)
[2024-11-18 16:57] LABS: Alanine Aminotransferase 21 U/L (14-59); Albumin Level 3.3 g/dL (3.4-5.0); Alkaline Phosphatase 104 U/L (46-116); Anion Gap 6 mmol/L (4-12); Aspartate Amino Transferase 19 U/L (15-37); Bilirubin,Total 1.1 mg/dL (0.00-1.00); Blood Urea Nitrogen 22 mg/dL (7-18); Calcium 9.5 mg/dL (8.5-10.1); Carbon Dioxide 31 mmol/L (21-32); Chloride 107 mmol/L (98-108); Estimated CRCL calculation 32 ml/min; Estimated Glomerular Filt Rate 42; Glucose 111 mg/dL (70-99); Osmolality Calculated 302 mOsm/kg (285-295); Potassium 4.9 mmol/L (3.5-5.1); Sodium 144 mmol/L (136-145); Total Protein 6.6 g/dL (6.4-8.2)
--- OUTSIDE RECORDS SUMMARY | 2024-11-18 17:46 | XMS_ITS | Encounter Summary ---
Author Organization [facility] Address [address] [place] [address] Care Team Providers Care Timber Bucker Name Role Phone Morgan Mosley MD Primary Care Provider [phone] Encounter Details Date Type Department Care Team (Late st Contact Info) Description 02/08/2019 Abstract SFL CONVERSION [address] [place] [address] , Generic ConversionMD Social History Tobacco Use Types Packs/Day Years Used Date Smoking Tobacco: Never Assessed Comments Unknown Sex and Gender Information Value Date Recorded Sex Assigned at Not on file Legal Sex Female 5:54 PM DOMESTIC CLEANER Gender Identity Not on file Sexual Orientation Not on file documented as of this encounter Plan of Treatment Not on file documented as of this encounter Visit Diagnoses Not on filedocumented in this encounter Additional Health Concerns Infection Onset Date Last Indicated Resolved Time COVID-19 Rule Out 08/13/2020 08/13/2020 08/13/2020 8:03 AM DOMESTIC CLEANER documented as of this encounter Care Teams Timber Bucker Relationship Specialty Start Date End Date Morgan Mosley MD [address] [place] [address] PCP - General INTERNAL MEDICINE 08/13/20 documented as of this encounter
--- OUTSIDE RECORDS SUMMARY | 2024-11-18 17:46 | XMS_ITS | Clinical Summary ---
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 Name Role Phone Morgan Mosley MD Primary Care Provider [phone] Allergies Active Allergy Reactions Criticality Noted Date [...] on file Legal Sex Female 5:54 PM [employer] Gender Identity Not on file Sexual Orientation Not on file Last Filed Vital Signs Vital Sign Reading Time Taken Comments Blood Pressure 150/68 08/15/2020 9:45 AM [employer]STITCH BINDER Pulse 77 08/15/2020 9:45 AM [employer]STITCH B[employer]ER Temperature 35.8 C (96.4 F) 08/15/2020 7:00 AM [employer]STITCH BINDER Respiratory Rate 3 08/15/2020 9:45 AM CHAINSTITCH BINDER Oxygen Saturation 99% 08/15/2020 7:00 AM [employer]STITCH BINDER Inhaled Oxygen Concentration - - Weight 86.5 kg (190 lb 9.6 oz) 08/13/2020 8:30 P M [employer]STITCH B[employer]ER Height 165.1 cm (5' 5 ) 08/13/2020 8:30 PM [employer]ITCH B[employer]ER Body Mass Index 31.72 08/13/2020 8:30 PM CHAINSTITCH BINDER Plan of Treatment Health Maintenance Due Date [...] patient's age to complete this topic Insurance [facility] Advance Directives * Full Code (Latest Code Status on File) Date Activated Date Inactivated Comments 08/14/2020 2:46 AM 08/15/2020 12:29 PM Care Teams Women'S Basketball Coach Relationship Specialty Start Date End Date Morgan Mosley MD [address] [place] [id number] (work) PCP - General INTERNAL MEDICINE 08/13/20
[2024-11-19] VITALS: BP 150/63; PULSE 56; RESP 14; TEMP 36.6; O2SAT 97
[2024-11-19] MEDS: HYDROcodone/acetaminophen (*CRX) 5-325 MG TABLET 1 TAB PO (00:06)
[2024-11-19 05:49] LABS: Alanine Aminotransferase 17 U/L (14-59); Albumin Level 3.3 g/dL (3.4-5.0); Alkaline Phosphatase 104 U/L (46-116); Anion Gap 8 mmol/L (4-12); Aspartate Amino Transferase 15 U/L (15-37); Bilirubin,Total 1.1 mg/dL (0.00-1.00); Blood Urea Nitrogen 25 mg/dL (7-18); Calcium 9.3 mg/dL (8.5-10.1); Carbon Dioxide 29 mmol/L (21-32); Chloride 107 mmol/L (98-108); Estimated CRCL calculation 33 ml/min; Estimated Glomerular Filt Rate 42; Glucose 97 mg/dL (70-99); Osmolality Calculated 302 mOsm/kg (285-295); Potassium 4.5 mmol/L (3.5-5.1); Sodium 144 mmol/L (136-145); Total Protein 6.2 g/dL (6.4-8.2)
[2024-11-19 08:00] VITALS: BP 129/59; PULSE 76; RESP 17; TEMP 35.5; O2SAT 99
[2024-11-19] MEDS: ENOXAPARIN 40 MG/0.4 ML SYRINGE SUB-Q (09:28)
[2024-11-19] MEDS: lisinopriL 20 MG TABLET PO (09:28)
--- NOTE | 2024-11-19 11:52 | P.SS_ITS ---
Same Day Admit/Disch: HPI History of Present Illness Chief complaint: INABILITY TO AMBULATE Narrative: Fatuma Nolasco is a 84 year old female who presented to the hospital with left thigh pain. She was having trouble ambulating and was brought to the emergency room for further evaluation. Workup in the hospital included left hip x-ray which shown minimal degenerative changes of the left hip joint. Venous Doppler studies were negative for any DVT in the left lower extremity. C-spine CT showed moderate cervical spondylosis, 2.3 cm left thyroid mass stable since 09/07/2022. Pelvis CT was negative for fracture dislocation, showed mild degenerative changes of both hip joints, small to moderate fat containing umbilical hernia, sigmoid diverticulosis. Femur x-ray was negative for any acute osseous abnormality, showed severe left hip and knee osteoarthritic changes. Lumbar spine CT showed moderate lumbar and lower thoracic spondylosis with no acute osseous abnormality. Initial labs showed a normal white blood cell count of 5.8, creatinine 1.23, EGFR 42, total bili 1.1. PMFSH Past Medical History Medical History Hypertension Social History Social History Smoking status: Never smoker Second hand tobacco smoke exposure: No Alcohol intake: never Substance use: never Substance use type: does not use Do You Feel Safe in your Home?: Yes Lack of Transportation: No Lack of Food: Never True Current Housing: I Have Housing Concerned About Future Housing: No Difficulty Paying Gas/Electric Bills: No Difficulty Paying for Meds: No Currently Unemployed: No Education: Decline to Answer Difficulty w/ Childcare or Family Care: No Spiritual care concerns: No Same Day Admit/Disch: Med Pre-admit Medications Home Medications ?Medication ?Instructions ?Recorded ?Confirmed ?Type lisinopril 20 mg tablet 20 mg PO DAILY #30 tabs 03/25/24 11/18/24 Rx Review of Systems Review of Systems All systems reviewed & are unremarkable except as noted in HPI and below Exam Narrative: General: In no acute distress, well nourished Head: atraumatic, no encephalopathy Eyes:PERRLA, sclera clear ENT: moist mucous membranes, nasal passages clear Neck: supple, no JVD, no adenopathy, trachea midline Cardiac: Normal S1 and S2. No murmur, gallops or friction rubs, peripheral pulses intact. Respiratory: Lungs clear to auscultation, no adventitious lung sounds, currently on room air Gastrointestinal: soft, non-distended, non-tender, normoactive bowel sounds. : voiding without difficulty. Extremities: moves all extremities well, no edema Skin: clean, dry, intact. No wounds or lesions. Neuro: Alert and oriented x4, cranial nerves intact, no neuro deficits. Psych: normal mood, normal affect, interactive DS: Data Data Completed and Pending Completed studies during hospitalization: Hip x-ray Venous Doppler study Cervical spine CT Pelvis CT Femur x-ray Lumbar spine CT Pending studies at discharge: None Labs on day of discharge: Labs from last 24 hours 11/19/24 11/18/24 05:11 16:22 WBC 5.8 RBC 4.66 Hgb 13.4 Hct 41.7 MCV 89.5 MCH 28.8 MCHC 32.1 RDW 13.1 Plt Count 194 MPV 10.7 Sodium 144 144 Potassium 4.5 4.9 Chloride 107 107 Carbon Dioxide 29 31 Anion Gap 8 6 BUN 25 H 22 H Creatinine 1.21 H 1.23 H Estim Creat Clear Calc 33 32 Estimated GFR 42 L 42 L Glucose 97 111 H Calculated Osmolality 302 H 302 H Calcium 9.3 9.5 Total Bilirubin 1.1 H 1.1 H AST 15 19 ALT 17 21 Alkaline Phosphatase 104 104 Total Protein 6.2 L 6.6 Albumin 3.3 L 3.3 L Procedures/Treatments: None DS: Summary Hospital Course Reason for hospitalization: Physical deconditioning 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 She was having trouble ambulating and was brought to the emergency room for further evaluation. Workup in the hospital included left hip x-ray which shown minimal degenerative changes of the left hip joint. Venous Doppler studies were negative for any DVT in the left lower extremity. C-spine CT showed moderate cervical spondylosis, 2.3 cm left thyroid mass stable since 09/07/2022. Pelvis CT was negative for fracture dislocation, showed mild degenerative changes of both hip joints, small to moderate fat containing umbilical hernia, sigmoid diverticulosis. Femur x-ray was negative for any acute osseous abnormality, showed severe left hip and knee osteoarthritic changes. Lumbar spine CT showed moderate lumbar and lower thoracic spondylosis with no acute osseous abnormality. Initial labs showed a normal white blood cell count of 5.8, creatinine 1.23, EGFR 42, total bili 1.1. Patient was seen and evaluated by PT and OT who are recommending outpatient therapy. She is stable for discharge at this time. She will need to follow up with her primary care doctor in 1 week. 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 Patient Instructions: Antibiotic Form, Lisinopril (By mouth), Fall Prevention for Older Adults (DC), Leg Pain (ED) Patient Language: Palestinian Stand Alone Forms: General Discharge Information Follow-up/Referrals: UNKNOWN,DOCTOR [Primary Care Provider] - 1 week Discharge Medications: Continued lisinopril 20 mg tablet 20 mg PO DAILY Qty: 30 2RF Other Ambulatory Orders: OT Outpatient Eval and Treat (ONCE) Timeframe: 20241126 Location: Determined by Patient Ordered By: Cher Saeed PT Outpatient Eval and Treat (ONCE) Timeframe: 20241126 Location: Determined by Patient Ordered By: Cher Saeed Date of admission: 11/18/24 15:01 Primary Care Provider: UNKNOWN,DOCTOR Admitting Provider: Allan Robledo Attending physician on admission: Cher Saeed Condition: Improved Hospitalist [facility] Advance Care Plan I have confirmed that the patient's Advanced Care Plan is present, code status is documented, or surrogate decision maker is listed in patient medical record.: Yes Medication Reconciliation I have utilized all available resources to obtain, update and review the patients current medications (includes all prescriptions, OTC, herbals, cannabis, and nutritional supplements).: Yes Heart Failure (Exclusion) Patient has history of Heart Transplant or Left Ventricular Assistive Device?: No IF YES, STOP HERE Heart Failure (Qualifier) Patient has current or prior documentation of LVEF less than or equal to 40%, or mod/servere depressed LVSF?: No IF NO, STOP HERE
--- NOTE | 2024-11-19 12:29 | PC.NURSE ---
Spoke with Josey patients POA, informed about discharge. Josey can be here in about an hour, confirmed 1330. Both parties agrees.
--- NOTE | 2024-11-20 09:40 | PC.NURSE ---
Called left for Josey LANG, informed call was to reach out and see how things were going with Fatuma. Request a return call.
--- NOTE | 2024-11-20 09:49 | PC.NURSE ---
Josey called to return VM. She is please we are calling to make sure all is OK with her mother, Informs she and her mother are managing, moved some furniture around so getting up out of chair is easier. She has no questions but states, I know I sound frazzeled because I am taking care of my mother and my sister, I really do not know what I am doing. She agrees discharge insturctions were explained well. Setting up follow up with Dr. Mosley and informed she is going to ask for physical therapy at that time to help get her stronger. She is OK with survey.
== END 2024-11-19 13:35 | disposition home or self-care (01) ==
LOC: CHSED 13:16 → CHS2ND 15:05
PROVIDERS: Nurse Practitioner Family; Admitting Provider Internal Medicine; Emergency Provider Emergency Medicine; Visit Provider Nurse Practitioner Acute Care
DX: M16.12 Unilateral primary osteoarthritis, left hip (principal); M17.12 Unilateral primary osteoarthritis, left knee; R26.2 Difficulty in walking, not elsewhere classified; F03.C0 Unspecified dementia, severe, without behavioral disturbance, psychotic disturbance, mood disturbance, and anxiety; I10 Essential (primary) hypertension; Z79.899 Other long term (current) drug therapy
CPT/HCPCS: 36415; 72125; 72131; 72192; 73552; 80053; 85027; 96372; 96374; 97161; 97165; 97535; 99285; A9270; G0378; J1650